=== PATIENT | female | born 1995 | race Caucasian/White ===

== ENCOUNTER → 2021-11-12 11:53 | Outpatient (BNVA) | payer BC, SELFPAY | PROVIDERS: PCP Family Medicine; Visit Provider Clinical Nurse Specialist Adult Health | DX: J02.9 Acute pharyngitis, unspecified (principal) | CPT/HCPCS: 86308 ==

== ENCOUNTER → 2022-02-08 10:14 | Outpatient (BNVA) | payer BC, SELFPAY | PROVIDERS: PCP Family Medicine; Visit Provider Family Medicine | DX: R55 Syncope and collapse (principal); R42 Dizziness and giddiness | CPT/HCPCS: 80053; 82607; 84443; 84597; 85025 ==

== ENCOUNTER → 2022-03-26 09:29 | Outpatient (BNVA) | payer BC, SELFPAY | PROVIDERS: PCP Family Medicine; Visit Provider Clinical Nurse Specialist Adult Health | DX: N30.00 Acute cystitis without hematuria (principal) | CPT/HCPCS: 81000; 87086 ==

== ENCOUNTER → 2022-04-09 08:50 | Outpatient (BNVA) | payer BC, SELFPAY | PROVIDERS: PCP Family Medicine; Visit Provider Clinical Nurse Specialist Adult Health | DX: N39.0 Urinary tract infection, site not specified (principal); J20.9 Acute bronchitis, unspecified; N12 Tubulo-interstitial nephritis, not specified as acute or chronic | CPT/HCPCS: 81000; 87077; 87086; 87184 ==

== ENCOUNTER 2022-05-01 11:41 | Emergency (ER) | payer BC, SELFPAY ==
[2022-05-01 12:02] VITALS: BP 136/79; PULSE 63; RESP 13; TEMP 36.6; O2SAT 99; BMI 37.6
--- NOTE | 2022-05-01 12:38 | ED_ITS ---
HPI - Abdominal Pain General: Chief Complaint: Abdominal Pain Stated Complaint: abd pain Time Seen by Provider: 05/01/22 12:35 Source: patient Mode of arrival: ambulatory History of Present Illness: 27-year-old female reports onset of left-sided abdominal pain this morning feeling progressively worse radiating to her back she denies any dysuria urgency frequency or hematuria. She is no cough or shortness of breath. She is not had any diarrhea she any dysuria urgency or frequency. No fever sweats or chills. MD elicited complaint: abdominal pain Onset (ago): hour(s) Pain Consistency: constant Location: LLQ Severity: moderate Quality: cramping Radiation: none Relieving factors: nothing Associated Symptoms: Reports GI cramping and nausea; Denies bloating, chills, coffee ground emesis, constipation, diarrhea, dysuria, fever(s), hematochezia, hematemesis, melena and vomiting Review of Systems Const: Denies: fever(s), chills, body aches, change in appetite, fatigue or malaise ENMT: Denies: throat pain, ear or mastoid pain, nasal discharge or nasal congestion Card: Denies: chest pain, palpitations, edema, dyspnea on exertion or ort hopnea Resp: Denies: dyspnea, productive cough or non-productive cough GI: Reports: abdominal pain, nausea and GI cramping; Denies: vomiting, hematemesis, coffee ground emesis, diarrhea, constipation, bloating, hematochezia or melena : Denies: flank pain, difficulty voiding, dysuria, urinary frequency or u rinary urgency Skin/Breast: Denies: rash or pruritus PFSH ED PFSH: Surgical History History of weight loss surgery Hx of cholecystectomy Family History Grandmother Diabetes Mother Lung disease Grandfather Stroke Denies family history of Chronic kidney disease (CKD) Suicide Cancer Hypertension Social History Smoking and tobacco status: never smoked Alcohol intake: never Adopted: No Lives independently: Yes Housing: House Marital status: Single Number of children: 0 Highest education level completed: High School Graduate service: No Current occupational status: employed and student Pets and animals: Yes History of recent travel: No Current gender identity: Female Physical Exam Const: GENERAL APPEARANCE: cooperative and comfortable ORIENTATION/CONSCIOUSNESS: Yes awake, Yes oriented to person, Yes oriented to place and Yes oriented to time HENMT: COMMON NORMALS: normocephalic, atraumatic and hearing grossly normal bilaterally HEAD & SCALP: normocephalic and atraumatic Resp: COMMON NORMALS: normal respiratory effort, No retractions, No use of accessory muscles and clear to auscultation bilaterally AUSCULTATION: clear to auscultation bilaterally Cardio: COMMON NORMALS: regular rate, regular rhythm and No murmurs present (Cardio) RATE: regular rate RHYTHM: regular rhythm GI: COMMON NORMALS: Soft to palpation and No hepatosplenomegaly present AUSCULTATION: Yes normoactive bowel sounds PALPATION: Yes Soft to palpation, Yes Tenderness to palpation present (GI) (epigastric/LUQ pain), No Guarding due to palpation present (GI) and Yes No hepatosplenomegaly present : COMMON NORMALS: Yes no CVA tenderness BLADDER/KIDNEY EXAM: Yes no CVA tenderness Back/Pelvis: COMMON NORMALS: no CVA tenderness Extremity: COMMON NORMALS: normal to inspection, capillary refill normal, no clubbing, cyanosis or edema, no calf tenderness and no pedal edema Neuro: SENSORIUM/ORIENTATION: Yes oriented to person, Yes oriented to place and Yes oriented to time Skin: COMMON NORMALS: no rashes or lesions noted GENERAL SKIN EXAM: no rashes or lesions noted Course Vital Signs: Vital signs: Vital Signs Temperature 97.9 F 05/01/22 12:02 Pulse Rate 77 05/01/22 13:06 Respiratory Rate 13 05/01/22 12:02 Blood Pressure 133/76 05/01/22 13:58 Pulse Oximetry 99 05/01/22 13:58 Oxygen Delivery Me thod 05/01/22 13:58 MDM - Abdominal Pain Medical Decision Making Patient presented with abdominal discomfort. She has a incidental finding of a bladder infection and some elevated liver enzymes she had slight elevation previously its more so now she previously had a gastric bypass and she has had a cholecystectomy she does not have anything that resembles biliary colic her T bili is not elevated. Recommend that she follow-up with liver function with [facility] primary care doctor sometime in the next few weeks. There is a moderate amount of constipation on the CT which I think is what is probably causing her primary abdominal symptoms of brought her in today is pretty much completely resolved now we will go and discharge her home she can use lactulose milk of magnesia or magnesium citrate for relief of constipation MicroBid for 7 days for the UTI. Medical Records I reviewed the patient's medical records. Lab Data I reviewed the patient's lab results. 05/01/22 13:02 05/01/22 13:02 Labs/Radiology: Radiology Impressions Abdomen/Pelvis CT 05/01/22 14:04 IMPRESSION: 1. Normal appendix. 2. Mild diffuse constipation. 3. No renal obstruction or hydronephrosis. 4. Prior cholecystectomy and gastric bypass. Laboratory Results WBC 5.7 10^3/uL (4.0-10.0) 05/01/22 13:02 RBC 4.14 10^6/uL (4.1-5.3) 05/01/22 13:02 Hgb 12.9 g/dL (11.5-15.3) 05/01/22 13:02 Hct 38.9 % (37.0-47.0) 05/01/22 13:02 MCV 94.0 fl (81-99) 05/01/22 13:02 MCH 31.2 pg (28.0-34.0) 05/01/22 13:02 MCHC 33.2 g/dL (30.0-36.0) 05/01/22 13:02 RDW 11.9 % (12.1-15.1) L 05/01/22 13:02 Plt Count 187 10^3/cmm (130-400) 05/01/22 13:02 MPV 11.0 fL (7.4-10.4) H 05/01/22 13:02 Neut % (Auto) 67.2 % 05/01/22 13:02 Lymph % (Auto) 24.6 % 05/01/22 13:02 Kleberg % (Auto) 7.2 % 05/01/22 13:02 Eos % (Auto) 0.5 % 05/01/22 13:02 Baso % (Auto) 0.2 % 05/01/22 13:02 Neut # (Auto) 3.85 10^3/uL (1.8-7.7) 05/01/22 13:02 Lymph # (Auto) 1.4 10^3/uL (0.8-4.8) 05/01/22 13:02 Kleberg # (Auto) 0.4 10^3/uL (0.2-0.9) 05/01/22 13:02 Eos # (Auto) 0.0 10^3/uL (0.0-0.8) 05/01/22 13:02 Baso # (Auto) 0.0 10^3/uL (0.0-0.1) 05/01/22 13:02 Nucleated RBC % (auto) 0 % 05/01/22 13:02 Nucleated RBCs # 0.0 /100WBC 05/01/22 13:02 Sodium 139 mmol/L (136-145) 05/01/22 13:02 Potassium 3.4 mmol/L (3.5-5.1) L 05/01/22 13:02 Chloride 102 mmol/L (98-107) 05/01/22 13:02 Carbon Dioxide 26 mmol/L (22-29) 05/01/22 13:02 Anion Gap 14.4 (5-19) 05/01/22 13:02 BUN 8 mg/dL (6-20) 05/01/22 13:02 Creatinine 0.6 mg/dL (0.5-0.9) 05/01/22 13:02 GFR Calculation 121.8 mL/min (90-130) 05/01/22 13:02 Glucose 106 mg/dL (65-115) 05/01/22 13:02 Calculated Osmolality 287 mOsm/kg (285-295) 05/01/22 13:02 Calcium 9.0 mg/dL (8.5-10.5) 05/01/22 13:02 Total Bilirubin 0.8 mg/dL (0.15-1.2) 05/01/22 13:02 AST 158 U/L (0-32) H 05/01/22 13:02 ALT 73 U/L (0-33) H 05/01/22 13:02 Alkaline Phosphatase 145 U/L (35-105) H 05/01/22 13:02 Total Protein 7.2 g/dL (6.6-8.7) 05/01/22 13:02 Albumin 4.2 g/dL (3.5-5.2) 05/01/22 13:02 Globulin 3.0 g/dL (1.3-4.6) 05/01/22 13:02 Lipase 18 U/L (13-60) 05/01/22 13:02 HCG, Qual Negative (Negative) 05/01/22 13:02 Urine Color Yellow (Yellow) 05/01/22 13:30 Urine Appearance Clear (CLEAR) 05/01/22 13:30 Urine pH 6 (5-7) 05/01/22 13:30 Ur Specific [place] 1.010 (1.005-1.030) 05/01/22 13:30 Urine Protein Neg (Negative) 05/01/22 13:30 Urine Glucose (UA) Norm (Normal) 05/01/22 13:30 Urine Ketones Negative (Negative) 05/01/22 13:30 Urine Blood 3+ (Negative) H 05/01/22 13:30 Urine Nitrate Negative (Negative) 05/01/22 13:30 Urine Bilirubin Neg (Negative) 05/01/22 13:30 Urine Urobilinogen 4 mg/dL (Negative) H 05/01/22 13:30 Ur Leukocyte Esterase Trace (Negative) H 05/01/22 13:30 Urine RBC 5-10 /hpf (0-2) H 05/01/22 13:30 Urine WBC 0-4 /hpf (0-5) H 05/01/22 13:30 Ur Squamous Epith Cells 0-4 /hpf (0-5) H 05/01/22 13:30 Amorphous Sediment Not Reportable 05/01/22 13:30 Urine Bacteria 3+ /hpf (NONE) H 05/01/22 13:30 Urine Trichomonas 3+ /hpf H 05/01/22 13:30 Discharge Plan Discharge Patient Disposition: Home Clinical Impression: Constipation, Cystitis Condition: Stable Prescriptions: New Macrobid 100 mg capsule 100 mg PO BID 7 Days Qty: 14 0RF Rx Instructions: must administer with a meal/food lactulose 10 gram/15 mL (15 mL) solution 30 g PO Q2H 3 Days Qty: 1620 0RF Rx Instructions: until desired laxative effect No Action biotin 1 mg capsule 1 mg PO DAILY calcium carbonate [Antacid (calcium carbonate)] 200 mg calcium (500 mg) tablet,chewable 200 mg PO BID Celebrate B-12 Quick-Melt 1,000-200 mcg tablet,disintegrating 1 tab PO DAILY omeprazole 20 mg capsule,delayed release(DR/EC) 20 mg PO DAILY Saccharomyces boulardii [Daily Probiotic (S. boulardii)] 250 mg capsule 5,000 mmu cells PO DAILY Daily Multiple Tablet 1 tab PO DAILY Vitamin D3 50 mcg (2,000 unit) Capsule 50 mcg PO DAILY Discharge Orders: Discharge ED (Routine); Ordered 05/01/22 Ordered By: Elan Varela Referrals: Gaurav Reyes DO [Primary Care Provider] - Discharge Diet: Usual diet Discharge Activity: Increase activity as tolerated Patient Instructions: Opioid Safety, Pain Management Activity Restrictions/Additional Instructions: Your seen today for abdominal pain. You had a mild UTI. The UTI is not likely the cause of your abdominal discomfort you are experiencing. Start the oral antibiotics prescribed for you today to treat that 1 pill twice a day for a week. Your liver enzymes were elevated but your bilirubin is normal. Since you have previously your gallbladder out this should just be followed up with your primary care doctor with repeat lab tests in the next [address] did show moderate amount of constipation which I suspect is where your discomfort is from you can use lactulose magnesium citrate or milk of magnesia to relieve the constipation. Coding Level of Care Code ED Diabetes Territory Manager for Mimi Fwd Exam Comprehensive
[2022-05-01 13:06] VITALS: PULSE 77; O2SAT 99
[2022-05-01 13:24] LABS: Basophils % 0.2 %; Eosinophils % 0.5 %; Hematocrit 38.9 % (37.0-47.0); Hemoglobin 12.9 g/dL (11.5-15.3); Lymphocytes # 1.4 10^3/uL (0.8-4.8); Lymphocytes % 24.6 %; Mean Corpuscular HGB Conc 33.2 g/dL (30.0-36.0); Mean Corpuscular Hemoglobin 31.2 pg (28.0-34.0); Monocytes # 0.4 10^3/uL (0.2-0.9); Monocytes % 7.2 %; Neutrophils # 3.85 10^3/uL (1.8-7.7); Neutrophils % 67.2 %; Nucleated Red Blood Cells % 0 %; Platelet Count 187 10^3/cmm (130-400); Red Blood Count 4.14 10^6/uL (4.1-5.3); Red Cell Distribution Width 11.9 % (12.1-15.1); White Blood Count 5.7 10^3/uL (4.0-10.0)
[2022-05-01] MEDS: promethazine 25 mg/mL SDV 1 mL IM (13:28)
[2022-05-01] MEDS: sodium chloride 0.9% 1,000 ML 999 ML IV (13:32)
[2022-05-01 13:37] LABS: HCG, Serum Qual Negative (Negative)
[2022-05-01 13:44] LABS: Alanine Aminotransferase 73 U/L (0-33); Albumin Level 4.2 g/dL (3.5-5.2); Alkaline Phosphatase 145 U/L (35-105); Anion Gap 14.4 (5-19); Aspartate Amino Transferase 158 U/L (0-32); Blood Urea Nitrogen 8 mg/dL (6-20); Carbon Dioxide 26 mmol/L (22-29); Chloride 102 mmol/L (98-107); Glomerular Filtration Rate 121.8 mL/min (90-130); Glucose 106 mg/dL (65-115); Lipase 18 U/L (13-60); Osmolality Calculated 287 mOsm/kg (285-295); Potassium 3.4 mmol/L (3.5-5.1); Sodium 139 mmol/L (136-145); Total Bilirubin 0.8 mg/dL (0.15-1.2); Total Protein 7.2 g/dL (6.6-8.7)
[2022-05-01 13:50] LABS: Add Urine Microscopic? YES; Bilirubin Urine Neg (Negative); Blood Urine 3+ (Negative); Glucose Urine UA Norm (Normal); Ketones Urine Negative (Negative); Leukocyte Esterase Urine Trace (Negative); Nitrate Urine Negative (Negative); Protein Urine Neg (Negative); Urine Appearance Clear (CLEAR); Urine Color Yellow (Yellow); Urobilinogen Urine 4 mg/dL (Negative); pH Urine 6 (5-7)
[2022-05-01 13:51] LABS: Add Urine Culture? Yes; Bacteria Urine 3+ /hpf; Squamous Epithelial Cell Urine 0-4 /hpf (0-5); Trichomonas Urine 3+ /hpf; WBC Urine 0-4 /hpf (0-5)
[2022-05-01 13:58] VITALS: BP 133/76; O2SAT 99
--- NOTE | 2022-05-01 14:04 | CT_ITS ---
WS: [id number] CT ABDOMEN AND PELVIS NONCONTRAST HISTORY: flank pain, LEFT TECHNIQUE: Imaging performed through the abdomen and pelvis. Coronal and sagittal reformats are submi tted. All CT scans at [facility] use at least one of these dose optimization techniques: auto mated exposure control; mA and/or kV adjustment per patient size (includes targeted exams where dose is matched to clinical indication); or iterative reconstruction. DLP: 1400.83 mGy.cm COMPARISON: None available. Lower thorax: Lung bases are clear. No cardiomegaly. Prior gastric bypass. Liver: Mild to coarse echotexture from hepatic steatosis. Gallbladder: Prior cholecystectomy. Pancreas: Normal size and attenuation. Normal pancreatic duct. No pancreatitis or mass. Spleen: Normal. Adrenal glands: Normal. No mass. Right kidney: Normal size kidney with no mass or hydronephrosis. Left kidney: Normal size kidney with no mass or hydronephrosis. Aorta: Normal abdominal aorta, no aneurysm or atherosclerosis. No free fluid, intraperitoneal air or significant lymphadenopathy. GI tract: Normal appendix. No GI tract obstruction or diverticulosis. Mild constipation. Abdominal wall: Negative. No hernia. Pelvis: No free fluid or adenopathy. Uterus is midline. Osseous structures: Unremarkable. CT/CT kidney stone [id number] IMPRESSION: 1. Normal appendix. 2. Mild diffuse constipation. 3. No renal obstruction or hydronephrosis. 4. Prior cholecystectomy and gastric bypass.
[2022-05-01 15:27] VITALS: BP 118/69; PULSE 86; O2SAT 100
== END 2022-05-01 15:30 | disposition home or self-care (01) ==
PROVIDERS: Emergency Provider Family Medicine; PCP Family Medicine
DX: K59.00 Constipation, unspecified (principal); N30.90 Cystitis, unspecified without hematuria
CPT/HCPCS: 36415; 74176; 80053; 81001; 83690; 84703; 85025; 87086; 96360; 96372; 99285; J2550; J7030

== ENCOUNTER → 2022-06-25 11:24 | Outpatient (BNVA) | payer BC, SELFPAY | PROVIDERS: PCP Family Medicine; Visit Provider Clinical Nurse Specialist Adult Health | DX: J02.9 Acute pharyngitis, unspecified (principal) | CPT/HCPCS: 87880 ==

== ENCOUNTER 2022-07-02 10:32 | Outpatient (CLI) | payer BC, SELFPAY ==
[2022-07-02 11:24] LABS: Basophils % 0.3 %; Eosinophils # 0.1 10^3/uL (0.0-0.8); Eosinophils % 0.9 %; Hematocrit 36.3 % (37.0-47.0); Hemoglobin 11.8 g/dL (11.5-15.3); Lymphocytes # 2.5 10^3/uL (0.8-4.8); Lymphocytes % 43.3 %; Mean Corpuscular HGB Conc 32.5 g/dL (30.0-36.0); Mean Corpuscular Hemoglobin 29.9 pg (28.0-34.0); Mean Corpuscular Volume 91.9 fl (81-99); Mean Platelet Volume 9.8 fL (7.4-10.4); Monocytes # 0.6 10^3/uL (0.2-0.9); Monocytes % 9.6 %; Neutrophils # 2.62 10^3/uL (1.8-7.7); Neutrophils % 45.7 %; Nucleated Red Blood Cells % 0 %; Platelet Count 184 10^3/cmm (130-400); Red Blood Count 3.95 10^6/uL (4.1-5.3); Red Cell Distribution Width 12.7 % (12.1-15.1); White Blood Count 5.7 10^3/uL (4.0-10.0)
[2022-07-02 11:30] LABS: Erythrocyte Sedimentation Rate 12 mm/hr (0-15)
[2022-07-02 11:39] LABS: Alanine Aminotransferase 64 U/L (0-33); Albumin Level 4.3 g/dL (3.5-5.2); Alkaline Phosphatase 125 U/L (35-105); Anion Gap 14.1 (5-19); Aspartate Amino Transferase 47 U/L (0-32); Blood Urea Nitrogen 9 mg/dL (6-20); C Reactive Protein 15.7 mg/L (0.0-4.9); Calcium 8.6 mg/dL (8.5-10.5); Carbon Dioxide 25 mmol/L (22-29); Chloride 102 mmol/L (98-107); Glomerular Filtration Rate 194.5 mL/min (90-130); Glucose 91 mg/dL (65-115); Osmolality Calculated 282 mOsm/kg (285-295); Potassium 4.1 mmol/L (3.5-5.1); Sodium 137 mmol/L (136-145); Total Bilirubin 0.4 mg/dL (0.15-1.2); Total Protein 7.3 g/dL (6.6-8.7)
[2022-07-02 11:43] LABS: Monoscreen Negative (Negative)
== END 2022-07-02 10:33 | disposition home or self-care (01) ==
PROVIDERS: PCP Family Medicine; Visit Provider Clinical Nurse Specialist Adult Health
DX: J02.9 Acute pharyngitis, unspecified (principal); Z79.899 Other long term (current) drug therapy
CPT/HCPCS: 36415; 80053; 85025; 85651; 86140; 86308; 87070

== ENCOUNTER → 2022-10-28 15:53 | Outpatient (BNVA) | payer BC, SELFPAY | PROVIDERS: PCP Family Medicine; Visit Provider Family Medicine | DX: R79.89 Other specified abnormal findings of blood chemistry (principal); Z80.3 Family history of malignant neoplasm of breast; Z90.49 Acquired absence of other specified parts of digestive tract; Z98.84 Bariatric surgery status | CPT/HCPCS: 80053; 82306; 82607; 83735; 84443; 85025; 88361; 88374 ==

== ENCOUNTER → 2023-02-25 09:34 | Outpatient (BNVA) | payer BC, SELFPAY | PROVIDERS: PCP Family Medicine; Visit Provider Family Medicine | DX: E03.9 Hypothyroidism, unspecified (principal); R60.9 Edema, unspecified; Z76.89 Persons encountering health services in other specified circumstances; Z80.3 Family history of malignant neoplasm of breast | CPT/HCPCS: 80053; 84443; 86480; 86762 ==

== ENCOUNTER → 2023-03-25 09:30 | Outpatient (BNVA) | payer BC, MEDICAID, SELFPAY | PROVIDERS: PCP Family Medicine; Referring Provider Family Medicine; Visit Provider Nurse Practitioner Women's Health | DX: Z12.4 Encounter for screening for malignant neoplasm of cervix (principal); Z01.419 Encounter for gynecological examination (general) (routine) without abnormal findings; Z80.3 Family history of malignant neoplasm of breast | CPT/HCPCS: 88175 ==

== ENCOUNTER 2023-05-03 19:13 | Emergency (ER) | payer BC, MEDICAID, SELFPAY ==
--- NOTE | 2023-05-03 19:16 | USR_ITS ---
PROCEDURE INFORMATION: Exam: US Duplex Right Lower Extremity Veins, Limited Exam date and time: 05/03/2023 9:18 PM Age: 28 years old Clinical indication: Pain; Leg, lower; Right; Additional info: Dvt RO TECHNIQUE: Imaging protocol: Real-time duplex ultrasound of the right extremity with 2-D turpin scale, color Doppler flow and spectral waveform analysis including responses to compression and other maneuvers (when performed) with image documentation. Limited exam was focused on the right lower extremity veins. COMPARISON: CT kidney stone [id number] 05/01/2022 2:33 PM FINDINGS: Right deep veins: Unremarkable. The common femoral, femoral, proximal profunda femoral and popliteal veins are patent without thrombus. Normal Doppler waveforms. Normal compressibility and/or augmentation response. Superficial veins: Unremarkable. Saphenofemoral junction is patent without thrombus. Soft tissues: Unremarkable. US/[place] [id number] IMPRESSION: No evidence of deep vein thrombosis.
[2023-05-03 19:20] VITALS: BP 163/97; PULSE 58; RESP 16; TEMP 36.3; O2SAT 100; BMI 36.2
--- NOTE | 2023-05-03 21:48 | W.ED.EXTPRO ---
HPI - Extremity Problem General: Chief complaint: Extremity Injury, Lower Stated complaint: [facility] inter thigh Time Seen by Provider: 05/03/23 21:14 Source: patient Mode of arrival: ambulatory Limitations: no limitations History of Present Illness: 28-year-old female states she has had right leg pain throughout the day. States tender right inner leg no rash she was seen in urgent care sent here to rule out a DVT states pain is 4 out of 10 currently denies any fevers. Denies any radiation of her pain Associated symptoms: Deny chest pain, fever(s) or rash Review of Systems Const: Denies: fever(s), chills, body aches or change in appetite ENMT: Denies: throat pain or dental pain Card: Denies: chest pain Resp: Denies: dyspnea GI: Denies: abdominal pain, nausea, vomiting or diarrhea Musc: Reports: extremity pain; Denies: neck pain or back pain Skin/Breast: Denies: rash Neuro: Denies: headache(s) PFSH ED PFSH: Medical History (Updated 05/03/23 @ 21:48 by Fabiana Perez MD) Family history of breast cancer sister dx at age 37 w/ ER/OH positive; BRCA 1&2 negative. Patient with neg BRCA;positive VUS which is essentially negative Hypothyroidism Surgical History History of tonsillectomy History of weight loss surgery modified duodenal switch 10/2021 Hx of cholecystectomy Family History (Updated 04/01/23 @ 09:29 by Dimas Zuñiga MD) Grandmother Diabetes Heart disease Mother Lung disease Asthma, worsening after COVID Diabetes Thyroid disease Liver failure Stage 4 Grandfather Stroke Sister Breast cancer, Onset Age: 38 stage 4 ER/OH positive BRCA 1&2 Negative Denies family history of Colon cancer Ovarian cancer Prostate cancer Hyperlipidemia Chronic kidney disease (CKD) Suicide Hypertension Uterine cancer Social History Smoking and tobacco/nicotine status: never used tobacco/nicotine Alcohol intake: never Substance/Drug Use: never 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 Marital status: Single Physical Exam Const: COMMON NORMALS: no acute distress, patient oriented x3 and healthy appearing HENMT: COMMON NORMALS: normocephalic and atraumatic HEAD & SCALP: normocephalic and atraumatic Neck/C-Spine: COMMON NORMALS: full ROM and supple Chest: COMMONS NORMALS: normal inspection of the chest Resp: COMMON NORMALS: normal respiratory effort Cardio: COMMON NORMALS: regular rate, regular rhythm and No murmurs present (Cardio) RATE: regular rate RHYTHM: regular rhythm Extremity: NARRATIVE EXTREMITY EXAM: Slight tenderness to right inner leg distal pulses sensation intact Neuro: COMMON NORMALS: patient oriented x3, moves all extremities and no focal motor deficits Psych: COMMON NORMALS: mental status grossly normal, Normal thought process present and cooperative THOUGHT PROCESS: Normal thought process present Skin: COMMON NORMALS: no rashes or lesions noted and no wounds GENERAL SKIN EXAM: no rashes or lesions noted Course Vital Signs: Vital signs: Vital Signs Temperature 97.3 F L 05/03/23 19:20 Pulse Rate 58 L 05/03/23 19:20 Respiratory Rate 16 05/03/23 19:20 Blood Pressure 163/97 05/03/23 19:20 Pulse Oximetry 100 05/03/23 19:20 Oxygen Delivery Me thod Room Air 05/03/23 19:20 MDM - Extremity (Nontraumatic) Medical Decision Making Patient presents here with right leg pain likely muscular in origin ultrasound here shows no DVT she is stable for discharge she is to follow-up with PCP and return if worsening. Medical Records I reviewed the patient's medical records. All radiology interpretation(s) finalized by discharge Discharge Plan Discharge Patient Disposition: Home Clinical Impression: Leg pain, right Condition: Stable Prescriptions: New naproxen [Naprosyn] 500 mg tablet 500 mg PO BID PRN (Reason: pain) Qty: 20 0RF No Action metronidazole 500 mg tablet 500 mg PO BID 7 Days Qty: 14 0RF epinephrine [EpiPen 2-Adriel] 0.3 mg/0.3 mL auto-injector 0.3 mg IM Q10M PRN (Reason: anaphylaxis) Qty: 2 0RF Rx Instructions: for 2 doses biotin 1 mg capsule 1 mg PO DAILY calcium carbonate [Antacid (calcium carbonate)] 200 mg calcium (500 mg) tablet,chewable 200 mg PO BID Celebrate B-12 Quick-Melt 1,000-200 mcg tablet,disintegrating 1 tab PO DAILY Saccharomyces boulardii [Daily Probiotic (S. boulardii)] 250 mg capsule 5,000 mmu cells PO DAILY Daily Multiple Tablet 1 tab PO DAILY Vitamin D3 50 mcg (2,000 unit) Capsule 50 mcg PO DAILY Discharge Orders: Discharge ED (Routine); Ordered 05/03/23 Ordered By: Fabiana Perez Referrals: Dimas Zuñiga MD [Primary Care Provider] - 4-7 days Discharge Diet: Advance as tolerated Discharge Activity: Resume usual activity Patient Instructions: Leg Pain (ED) Coding Level of Care Code ED Steep Tender for Mimi Rose
[2023-05-03] MEDS: naproxen 500 mg Tablet PO (21:52)
[2023-05-03 21:59] VITALS: PULSE 88; RESP 16
== END 2023-05-03 22:00 | disposition home or self-care (01) ==
PROVIDERS: Emergency Provider Emergency Medicine; PCP Family Medicine
DX: M79.604 Pain in right leg (principal)
CPT/HCPCS: 93971; 99284

== ENCOUNTER → 2023-07-11 08:49 | Outpatient (BNVA) | payer BC, MEDICAID, SELFPAY | PROVIDERS: PCP Family Medicine; Visit Provider Family Medicine | DX: Z51.81 Encounter for therapeutic drug level monitoring (principal); R55 Syncope and collapse; R53.81 Other malaise; R53.83 Other fatigue; R01.1 Cardiac murmur, unspecified | CPT/HCPCS: 80053; 83735; 84443; 85025 ==

== ENCOUNTER 2023-07-16 07:39 | Outpatient (CLI) | payer BC, MEDICAID, SELFPAY ==
--- NOTE | 2023-07-16 08:15 | USCV_ITS ---
ToanJose nye Age: 28 Gender: F : 1995 Exam Date: 07/16/2023 08:11 Ordering Phys: Dimas Zuñiga MD Technologist: Camryn Nicolas [place]am [place] [facility] [place]: SYNCOPE BP: / HR: 57 Rhythm: Sinus Technical Quality: Adequate MEASUREMENTS (Male / Female) Normal Values 2D ECHO LV Diastolic Diameter PLAX 3.9 cm 4.2 - 5.9 / 3.9 - 5.3 cm LV Systolic Diameter PLAX 2.7 cm LV Chamber Size 3.7 cm IVS Diastolic Thickness 0.7 cm 0.6 - 1.0 / 0.6 - 0.9 cm IVS Systolic Thickness 0.9 cm LVPW Diastolic Thickness 1.5 cm 0.6 - 1.0 / 0.6 - 0.9 cm LVPW Systolic Thickness 1.2 cm RV Chamber Size 3.2 cm LVOT Diameter 2.1 cm LV Ejection Fraction 2D Teich 60.3 % LV Ejection Fraction MOD 2C 29.8 % LV Ejection Fraction 2C AL 25.4 % LA Diameter 3.8 cm LA Width 3.4 cm LA Height 4.9 cm RA Width 3.2 cm RA Height 4.8 cm Aorta at Sinotubular Diameter 2.9 cm IVC Diameter 1.7 cm M-MODE Aortic Annulus Diameter 2.8 cm LA Ao Ratio MM 1.8 MV E Point Septal Separation 0.6 cm DOPPLER AV Peak Velocity 177.7 cm/s LVOT Peak Velocity 95.3 cm/s AV Area Cont Eq vti 1.9 cm squared AV Area Cont Eq pk 1.8 cm squared MV Area PHT 3.7 cm squared Mitral E to A Ratio 2.8 MV E' Velocity 78.0 cm/s Mitral E to MV E' Ratio 10.8 Mitral E to LV E' Lateral Ratio 10.5 Mitral E to LV E' Septal Ratio 11.1 TR Peak Velocity 207.7 cm/s TR Peak Gradient 17.3 mmHg TR Mean Velocity 136.6 cm/s TR Mean Gradient 8.8 mmHg TR Velocity Time Integral 49.9 cm TV Peak E Velocity 84.0 cm/s Right Atrial Pressure 3.0 mmHg Pulmonary Artery Systolic Pressu 20.3 mmHg RV Acceleration Time 0.1 s RV Ejection Time 0.3 s RV AcT/ET 0.4 FINDINGS Left Ventricle Left ventricle is normal in size. LV systolic function is normal with EF of 55 to 60%. No regional wall motion abnormalities are seen. Right Ventricle Normal in size and function Right Atrium Normal in size Left Atrium Normal in size Mitral Valve Structurally normal mitral valve. Aortic Valve Structurally normal aortic valve. No significant stenosis or regurgitation. Tricuspid Valve Mild tricuspid regurgitation. Pulmonary artery systolic pressure is normal. Pulmonic Valve Not well visualized Pericardium Normal Aorta Normal in size IVC Appears to be normal CONCLUSIONS LV systolic function is normal with EF of 55 to 60%. Mild tricuspid regurgitation No comparison studies are available. Terry Agee MD (Electronically Signed) Final Date: 30 July 2023 11:24 S
== END 2023-07-16 07:40 | disposition home or self-care (01) ==
LOC: RAD 07:40
PROVIDERS: PCP Family Medicine; Visit Provider Family Medicine
DX: R55 Syncope and collapse (principal); R01.1 Cardiac murmur, unspecified
CPT/HCPCS: 93306

== ENCOUNTER → 2023-12-24 09:21 | Outpatient (BNVA) | payer BC, MEDICAID, SELFPAY | PROVIDERS: PCP Family Medicine; Visit Provider Family Medicine | DX: Z34.90 Encounter for supervision of normal pregnancy, unspecified, unspecified trimester (principal) | CPT/HCPCS: 80307; 81003; 81025; 84144; 84439; 84443; 84481; 84702; 85025; 86592; 86762; 86803; 86850; 86900; 87077; 87086; 87184; 87340; 87491; 87591; 87624; 87806 ==

== ENCOUNTER 2024-01-07 10:30 | Outpatient (CLI) | payer BC, MEDICAID, SELFPAY ==
--- NOTE | 2024-01-07 10:30 | USR_ITS ---
PROCEDURE INFORMATION: Exam: US First Trimester, Transabdominal and US , Transvaginal Exam date and time: 01/07/2024 10:11 AM Age: 28 years old Clinical indication: Screening exam; Routine US, uterus; Additional info: Dating US - about 2 weeks from now LABS AND CLINICAL REPORTS: Last menstrual period start date: 11/17/2023 Gestational age (Established): 7 w 2 d Estimated due date (Established): 08/23/2024 TECHNIQUE: Imaging protocol: Real-time transabdominal obstetrical ultrasound of the maternal pelvis and a first trimester , less than 14 weeks 0 days, with image documentation. Transvaginal imaging was used for better evaluation of the fetus, adnexa, and/or cervix. COMPARISON: CT kidney stone [id number] 05/01/2022 2:33 PM FINDINGS: GESTATION: Gestation: Yolk sac measures 4.5 mm. Embryonic/ heart rate: 152 bpm Extra-embryonic membranes/Placenta: Unremarkable. No subchorionic bleed. Amniotic/Chorionic fluid: Amniotic and extra-amniotic fluid are normal for gestational age. BIOMETRY: Gestational age (AUA): 7 weeks 3 days ALICE 08/22/2024 Mean sac diameter: 2.47 cm. EGA (MSD) is 7 w 4 d MATERNAL: Uterus: Unremarkable. 5.1 cm x 5.7 cm x 9.9 cm Cervix: Unremarkable. Endocervical canal is closed. Right ovary/adnexa: 3.3 cm x 1.9 cm x 2 cm no focal abnormality.. Left ovary/adnexa: Obscured by lack of adequate acoustic window. Intraperitoneal space: No intraperitoneal free fluid. US/US OB <=14 wk fetus w transvag IMPRESSION: 1. Single living intrauterine gestation. 2. Gestational age 7 weeks 3 days ALICE 08/22/2024 . 3. Normal right ovary 4. Left ovary is not visible. 5. Unremarkable uterus
== END 2024-01-07 10:31 | disposition home or self-care (01) ==
PROVIDERS: PCP Family Medicine; Visit Provider Family Medicine
DX: Z34.01 Encounter for supervision of normal first pregnancy, first trimester (principal); R30.0 Dysuria
CPT/HCPCS: 76801; 76817; 87086

== ENCOUNTER 2024-02-16 06:00 | Outpatient (CLI) | payer BC, MEDICAID, SELFPAY | END 2024-02-16 06:01 | disposition home or self-care (01) | LOC: RAD 03-12 13:16 | PROVIDERS: PCP Family Medicine; Visit Provider Family Medicine | DX: E03.9 Hypothyroidism, unspecified (principal) | CPT/HCPCS: 84439; 84443 ==

== ENCOUNTER → 2024-03-08 14:27 | Outpatient (BNVA) | payer BC, MEDICAID, SELFPAY | PROVIDERS: PCP Family Medicine; Visit Provider Family Medicine | DX: R30.0 Dysuria (principal) | CPT/HCPCS: 81000; 87086 ==

== ENCOUNTER → 2024-03-15 10:38 | Outpatient (BNVA) | payer BC, MEDICAID, SELFPAY | PROVIDERS: PCP Family Medicine; Visit Provider Family Medicine | DX: Z34.00 Encounter for supervision of normal first pregnancy, unspecified trimester (principal) | CPT/HCPCS: 81511 ==

== ENCOUNTER 2024-04-05 10:35 | Outpatient (CLI) | payer BC, MEDICAID, SELFPAY ==
--- NOTE | 2024-04-05 11:15 | USR_ITS ---
PROCEDURE INFORMATION: Exam: US After First Trimester, Transabdominal Exam date and time: 04/05/2024 10:45 AM Age: 29 years old Clinical indication: Screening exam; Routine US, uterus; Additional info: Anatomy US - about 7 weeks from now TECHNIQUE: Imaging protocol: Real-time transabdominal obstetrical ultrasound of the maternal pelvis and a second or third trimester with image documentation. COMPARISON: US OB <=14 wk fetus w transvag 01/07/2024 10:11 AM FINDINGS: Gestation: Single, viable intrauterine gestation. heart rate: 135 bpm presentation and position: The fetus is in cephalic presentation. Placenta: The placenta is anterior. No placenta previa. No placental abruption. Amniotic fluid (Qualitative): Amniotic fluid is subjectively normal for gestational age. Amniotic fluid index: Not listed. ANATOMY: midline falx: Unremarkable. cerebellum: Unremarkable. lateral ventricles: Unremarkable. cisterna magna: Unremarkable. choroid plexus: Unremarkable. face: nose/upper lip and profile are unremarkable. aortic arch: The aortic arch is unremarkable. heart four-chamber view, heart size and position: There is a four-chamber heart. heart right ventricular outflow tract: Unremarkable. heart left ventricular outflow tract: Unremarkable. diaphragm: The diaphragm is intact. kidneys: Unremarkable. stomach: Unremarkable. urinary bladder: Unremarkable. spine: The spine is unremarkable. Umbilical cord and insertion: There is a three-vessel cord. Cord insertion into the abdominal wall is unremarkable. upper limbs: Unremarkable as visualized. lower limbs: Unremarkable as visualized. external genitalia: External female genitalia. No gross abnormality. BIOMETRY: Gestational age (AUA): 20 weeks 3 days. Estimated due date (AUA): 08/20/2024 Estimated weight: 343.64 g. EFW by AC, BPD, FL, HC, Hadlock 1985 Biparietal diameter (BPD): 4.96 cm. EGA (BPD) is 21 w 0 d. 86.3 % percentile Head circumference (HC): 17.97 cm. EGA (HC) is 20 w 3 d. 61.4 % percentile Abdominal circumference (AC): 15.19 cm. EGA (AC) is 20 w 3 d. 58.3 % percentile Femur length (FL): 3.22 cm. EGA (FL) is 20 w 0 d. 43.4 % percentile HC/AC: 1.18. (Normal range: 1.07 - 1.25) FL/HC: 17.92. (Normal range: 16.41 - 20.01) FL/BPD: 64.92 FL/AC: 21.2 MATERNAL: Uterus: Unremarkable. Cervix: The maternal cervix measures 4.4 cm using a transabdominal approach. There is a questionable small amount of cervical funneling at the internal cervical os (series 1, images 120 and 940). Right ovary/adnexa: Obscured by lack of adequate acoustic window. Left ovary/adnexa: Obscured by lack of adequate acoustic window. Intraperitoneal space: No ascites. US/US OB >= 14 weeks fetus [id number] IMPRESSION: 1. Single, viable intrauterine gestation. Estimated gestational age of twenty weeks 3 days by ultrasound. Estimated delivery date by ultrasound is 08/20/2024. This is consistent with the previous ultrasound. There has been interval growth of the fetus. 2. The maternal cervix measures 4.4 cm using a transabdominal approach. There is a questionable small amount of cervical funneling at the internal cervical os. Recommend follow-up imaging with transvaginal evaluation of the cervix including Valsalva maneuvers. 3. anatomic survey is unremarkable.
== END 2024-04-05 10:36 | disposition home or self-care (01) ==
LOC: RAD 10:36
PROVIDERS: PCP Family Medicine; Visit Provider Family Medicine
DX: Z34.00 Encounter for supervision of normal first pregnancy, unspecified trimester (principal)
CPT/HCPCS: 76805

== ENCOUNTER 2024-04-19 06:20 | Outpatient (CLI) | payer BC, MEDICAID, SELFPAY ==
--- NOTE | 2024-04-19 06:30 | USR_ITS ---
PROCEDURE INFORMATION: Exam: US , Limited Exam date and time: 04/19/2024 6:37 AM Age: 29 years old Clinical indication: Screening exam; Routine US, uterus; Additional info: Fol. Up on funneling seen on US - transvag imaging of cervix, in the next 7-10 days please LABS AND CLINICAL REPORTS: Gestational age (Established): 22 w 0 d Estimated due date (Established): 08/23/2024 TECHNIQUE: Imaging protocol: Real-time ultrasound of the maternal uterus with image documentation. Exam focused on the clinical indication. COMPARISON: US OB >= 14 weeks fetus [id number] 04/05/2024 10:45 AM FINDINGS: Gestation: Single live intrauterine gestation with estimated gestational age of 22 weeks and 0 days. Estimated due date of 08/23/2024. heart rate: 144 bpm Placenta: Anterior positioning of the placenta. Fetus in cephalic positioning. MATERNAL: Cervix: The cervix is long and closed, measuring 5.4 cm in length. There is mild bulging of the membranes at the internal os, with Y-shaped appearance, with funnel length of approximately 4 mm. US/US OB lmt with transvaginal IMPRESSION: 1. Single live intrauterine gestation with estimated gestational age of 22 weeks. No acute abnormality on this scan. 2. The cervix is long and closed. There is minimal funneling at the internal cervical os, of doubtful clinical significance. Continued monitoring recommended.
== END 2024-04-19 06:21 | disposition home or self-care (01) ==
LOC: RAD 06:21
PROVIDERS: PCP Family Medicine; Visit Provider Family Medicine
DX: Z34.02 Encounter for supervision of normal first pregnancy, second trimester (principal)
CPT/HCPCS: 76815; 76817

== ENCOUNTER → 2024-05-21 09:38 | Outpatient (BNVA) | payer BC, MEDICAID, SELFPAY | PROVIDERS: PCP Family Medicine; Visit Provider Family Medicine | DX: Z51.81 Encounter for therapeutic drug level monitoring (principal) | CPT/HCPCS: 85025 ==

== ENCOUNTER → 2024-05-27 13:49 | Outpatient (BNVA) | payer BC, MEDICAID, SELFPAY | PROVIDERS: PCP Family Medicine; Visit Provider Family Medicine | DX: Z34.00 Encounter for supervision of normal first pregnancy, unspecified trimester (principal) | CPT/HCPCS: 80053; 82306; 82310; 82525; 82607; 82728; 82746; 83550; 83735; 83970; 84100; 84425; 84439; 84443; 84446; 84590; 84597; 84630; 85610 ==

== ENCOUNTER 2024-06-23 12:15 | Outpatient (CLI) | payer BC, MEDICAID, SELFPAY ==
[2024-06-23 12:15] VITALS: BMI 36.5
[2024-06-23 12:23] VITALS: BP 143/77; PULSE 65
[2024-06-23 12:43] VITALS: BP 123/74; PULSE 68
== END 2024-06-23 13:00 | disposition home or self-care (01) ==
LOC: OPOB 12:15 → OBGYN 12:16
PROVIDERS: PCP Family Medicine; Visit Provider Family Medicine
DX: O36.8190 Decreased fetal movements, unspecified trimester, not applicable or unspecified (principal); Z3A.00 Weeks of gestation of pregnancy not specified
CPT/HCPCS: 59025; 99211

== ENCOUNTER 2024-07-16 09:30 | Outpatient (CLI) | payer BC, MEDICAID, SELFPAY ==
[2024-07-16 10:15] LABS: Basophils % 0.3 %; Eosinophils % 0.3 %; Hematocrit 28.6 % (36-47); Lymphocytes # 1.5 10^3/uL (0.8-4.8); Lymphocytes % 18.4 %; Mean Corpuscular HGB Conc 31.8 g/dL (30-55); Mean Corpuscular Hemoglobin 27.5 pg (27-33); Mean Corpuscular Volume 86.4 fl (85-98); Mean Platelet Volume 11.1 fL (7.4-10.4); Monocytes # 0.6 10^3/uL (0.2-0.9); Monocytes % 7.2 %; Neutrophils # 5.85 10^3/uL (1.8-7.7); Neutrophils % 73.4 %; Nucleated Red Blood Cells % 0 %; Platelet Count 186 10^3/cmm (157-399); Red Blood Count 3.31 10^6/uL (3.85-5.65); Red Cell Distribution Width 13.3 % (12.1-15.1); White Blood Count 7.95 10^3/uL (3.29-11.43)
[2024-07-16 10:34] LABS: UPRO/UCREAT Ratio 0.18 mg/mg CR; Urine Creatinine 40 mg/dL (28-217); Urine Protein Random 7 mg/dL
[2024-07-16 10:39] LABS: Calcium 8.3 mg/dL (8.5-10.5)
[2024-07-16 10:45] LABS: Parathyroid Hormone 29.3 pg/mL (15-65)
[2024-07-16 10:54] LABS: Folate Level 18.2 ng/mL (4.8-37.3)
[2024-07-16 11:00] LABS: 25 Hydroxy Vitamin D 20 ng/mL (30-100); Alanine Aminotransferase 19 U/L (0-33); Albumin Level 3.3 g/dL (3.5-5.2); Alkaline Phosphatase 135 U/L (35-105); Anion Gap 13.5 (5-19); Aspartate Amino Transferase 20 U/L (0-32); Blood Urea Nitrogen 6 mg/dL (6-20); Calcium 8.4 mg/dL (8.5-10.5); Carbon Dioxide 23 mmol/L (22-29); Chloride 106 mmol/L (98-107); Ferritin 8 ng/mL (15-150); Globulin 3.2 g/dL (1.3-4.6); Glomerular Filtration Rate 191.5 mL/min (90-130); Glucose 86 mg/dL (65-115); Iron 46 ug/dL (37-145); Osmolality Calculated 285 mOsm/kg (285-295); Percent Saturation 10.9 % (20-50); Potassium 3.5 mmol/L (3.5-5.1); Sodium 139 mmol/L (136-145); Thyroid Stimulating Hormone 1.31 uIU/mL (0.27-4.20); Total Bilirubin 0.4 mg/dL (0.15-1.2); Total Iron Binding Capacity 419 mcg/dl; Total Protein 6.5 g/dL (6.6-8.7); Unsaturated Iron Binding 373 ug/dL (112-347); Uric Acid 3.2 mg/dL (2.4-5.7); Vitamin B12 428 pg/mL (232-1245)
[2024-07-16 11:28] LABS: Free T4 Free Thyroxine 0.98 ng/dL (0.82-1.77)
== END 2024-07-16 09:31 | disposition home or self-care (01) ==
LOC: LAB 09:31
PROVIDERS: PCP Family Medicine; Visit Provider Family Medicine
DX: E55.9 Vitamin D deficiency, unspecified (principal); O99.843 Bariatric surgery status complicating pregnancy, third trimester; E03.9 Hypothyroidism, unspecified; R03.0 Elevated blood-pressure reading, without diagnosis of hypertension; Z51.81 Encounter for therapeutic drug level monitoring; D64.9 Anemia, unspecified; E53.8 Deficiency of other specified B group vitamins
CPT/HCPCS: 36415; 80053; 82306; 82310; 82525; 82570; 82607; 82728; 82746; 83540; 83550; 83970; 84156; 84425; 84439; 84443; 84446; 84550; 84590; 84597; 84630; 85025

== ENCOUNTER → 2024-07-21 11:43 | Outpatient (BNVA) | payer BC, MEDICAID, SELFPAY | PROVIDERS: PCP Family Medicine; Visit Provider Family Medicine | DX: R03.0 Elevated blood-pressure reading, without diagnosis of hypertension (principal); O99.843 Bariatric surgery status complicating pregnancy, third trimester | CPT/HCPCS: 84156 ==

== ENCOUNTER 2024-07-26 10:10 | Outpatient (CLI) | payer BC, MEDICAID, SELFPAY ==
[2024-07-26 10:20] VITALS: RESP 15
[2024-07-26 10:21] VITALS: BMI 36.8
[2024-07-26 10:22] VITALS: BP 142/99; PULSE 110
[2024-07-26 10:38] VITALS: BP 132/80; PULSE 87
== END 2024-07-26 10:55 | disposition home or self-care (01) ==
LOC: OPOB 10:13 → OBGYN 10:14
PROVIDERS: PCP Family Medicine; Visit Provider Family Medicine
DX: O16.9 Unspecified maternal hypertension, unspecified trimester (principal); Z3A.00 Weeks of gestation of pregnancy not specified
CPT/HCPCS: 59025

== ENCOUNTER 2024-07-30 10:50 | Outpatient (CLI) | payer BC, MEDICAID, SELFPAY ==
--- NOTE | 2024-07-30 11:00 | US_ITS ---
WS: [id number] BIOPHYSICAL PROFILE AND LIMITED OB. HISTORY: chronic HTN - See below COMPARISON: 01/07/2024, 04/05/2024, 04/19/2024 Presentation: Cephalic Cervix: Not visualized due to head position deep within the pelvis. Placenta: Anterior, no previa or abruption. Grade: 2 HEART: FHR of 142BPM. measurements: BPD = 9.0 cm = 36w4d; 62% HC = 32.7 cm = 37w1d; 34% AC = 32.6 cm = 36w4d; 62% FL = 7.1 cm = 36w3d; 43% ALICIA: 13.6 cm EFW: 2978.7g; 54% AGA by ultrasound: 36 weeks 5 days ALICE by ultrasound: 08/22/2024 Biophysical profile: Parameters are as follows: Breathin Movement: 2 Tone: 2 Fluid volume: 2 UMBILICAL ARTERY DOPPLER Waveform analysis: Normal systolic and diastolic velocities. Diastolic velocity remains above the baseline. Normal upstroke of waveform. SD ratios: 2.3, at the 50th percentile. Resistivity indices: 0.5, at the 50th percentile. US/US OB lmt w/ BPP wo NST IMPRESSION: 1. Biophysical profile score: 8/8. 2. Single intrauterine gestation of 36 weeks 5 days with an EDC of 08/22/2024. Appropriate growth since the first trimester ultrasound. 3. Normal SD ratio and normal resistivity indices. 4. Normal amniotic fluid. 5. Anterior placenta, grade 2.
== END 2024-07-30 10:51 | disposition home or self-care (01) ==
PROVIDERS: PCP Family Medicine; Visit Provider Family Medicine
DX: Z34.03 Encounter for supervision of normal first pregnancy, third trimester (principal); I10 Essential (primary) hypertension; Z3A.36 36 weeks gestation of pregnancy
CPT/HCPCS: 76815; 76819; 87081

== ENCOUNTER 2024-07-30 14:12 | Outpatient (CLI) | payer BC, MEDICAID, SELFPAY ==
[2024-07-30 14:10] VITALS: BMI 37.6
[2024-07-30 14:23] VITALS: BP 135/81; PULSE 77
[2024-07-30 14:38] VITALS: BP 133/79; PULSE 81
== END 2024-07-30 14:55 | disposition home or self-care (01) ==
LOC: OPOB 14:13 → OBGYN 14:14
PROVIDERS: Family Provider Family Medicine; PCP Family Medicine; Visit Provider Family Medicine
DX: O16.9 Unspecified maternal hypertension, unspecified trimester (principal); Z3A.00 Weeks of gestation of pregnancy not specified
CPT/HCPCS: 59025; 99211

== ENCOUNTER 2024-08-03 10:31 | Outpatient (CLI) | payer BC, MEDICAID, SELFPAY ==
[2024-08-03 10:31] VITALS: BMI 37.3
[2024-08-03 10:43] VITALS: BP 134/80; PULSE 68
[2024-08-03 11:07] VITALS: BP 125/74; PULSE 73
[2024-08-03 11:27] VITALS: BP 122/73; PULSE 76
== END 2024-08-03 11:33 | disposition home or self-care (01) ==
LOC: OPOB 10:35 → OBGYN 10:36
PROVIDERS: Family Provider Family Medicine; PCP Family Medicine; Visit Provider Family Medicine
DX: O16.9 Unspecified maternal hypertension, unspecified trimester (principal); Z3A.00 Weeks of gestation of pregnancy not specified
CPT/HCPCS: 59025; 99211

== ENCOUNTER 2024-08-03 14:00 | Outpatient (CLI) | payer BC, MEDICAID, SELFPAY ==
--- NOTE | 2024-08-03 14:15 | USR_ITS ---
PROCEDURE INFORMATION: Exam: US Biophysical Profile Without Non-Stress Test Exam date and time: 08/03/2024 2:33 PM Age: 29 years old Clinical indication: Condition or disease; Other: HTN; ; Additional info: Chronic HTN, alicia/bpp/efw/umblical artery doppler TECHNIQUE: Imaging protocol: US biophysical profile without non-stress testing. COMPARISON: US OB lmt w/ BPP wo NST 07/30/2024 11:08 AM FINDINGS: Gestation: Single live intrauterine in cephalic presentation. heart rate: 142 bpm Placenta: The placenta is anterior in location. Amniotic fluid index: ALICIA is 15.16 cm. BIOPHYSICAL PROFILE: breathing (BPP): 2 out of 2. gross body movement (BPP): 2 out of 2. tone (BPP): 2 out of 2. Amniotic fluid (BPP): 2 out of 2. MATERNAL ANATOMY: Cervix: Not well seen on this exam due to shadowing from the cranium. US/US OB lm w fetalBPP woNST &umb IMPRESSION: 1. Single live intrauterine in cephalic presentation. 2. biophysical profile score 8/8.
== END 2024-08-03 14:01 | disposition home or self-care (01) ==
PROVIDERS: Family Provider Family Medicine; PCP Family Medicine; Visit Provider Family Medicine
DX: O13.3 Gestational [pregnancy-induced] hypertension without significant proteinuria, third trimester (principal); Z3A.36 36 weeks gestation of pregnancy
CPT/HCPCS: 76815; 76819; 76820

== ENCOUNTER 2024-08-06 10:17 | Outpatient (CLI) | payer BC, MEDICAID, SELFPAY ==
[2024-08-06 10:12] VITALS: BMI 32.5
[2024-08-06 10:44] VITALS: BP 130/82; PULSE 89
== END 2024-08-06 10:55 | disposition home or self-care (01) ==
LOC: OPOB 10:17 → OBGYN 10:31
PROVIDERS: Family Provider Family Medicine; PCP Family Medicine; Visit Provider Family Medicine
DX: O16.9 Unspecified maternal hypertension, unspecified trimester (principal); Z3A.00 Weeks of gestation of pregnancy not specified
CPT/HCPCS: 59025; 99211

== ENCOUNTER 2024-08-10 11:07 | Outpatient (CLI) | payer BC, MEDICAID, SELFPAY ==
[2024-08-10 11:07] VITALS: BMI 38.2
[2024-08-10 11:32] VITALS: BP 124/78; PULSE 68
[2024-08-10 11:47] VITALS: BP 136/91; PULSE 74
== END 2024-08-10 11:54 | disposition home or self-care (01) ==
LOC: OPOB 11:09 → OBGYN 11:10
PROVIDERS: Family Provider Family Medicine; PCP Family Medicine; Visit Provider Family Medicine
DX: O16.9 Unspecified maternal hypertension, unspecified trimester (principal); Z3A.00 Weeks of gestation of pregnancy not specified
CPT/HCPCS: 59025; 99211

== ENCOUNTER 2024-08-10 12:26 | Outpatient (CLI) | payer BC, MEDICAID, SELFPAY ==
--- NOTE | 2024-08-10 12:34 | USR_ITS ---
PROCEDURE INFORMATION: Exam: US Biophysical Profile Without Non-Stress Test Exam date and time: 08/10/2024 12:40 PM Age: 29 years old Clinical indication: Condition or disease; Other: Chronic HTN; TECHNIQUE: Imaging protocol: US biophysical profile without non-stress testing. COMPARISON: US OB lm w fetalBPP woNST umb 08/03/2024 2:33 PM FINDINGS: Gestation: Single live intrauterine in cephalic presentation. heart rate: 157 bpm Placenta: Anterior in location. Amniotic fluid index: ALICIA is 13.83 cm. BIOPHYSICAL PROFILE: breathing (BPP): 2 out of 2. gross body movement (BPP): 2 out of 2. tone (BPP): 2 out of 2. Amniotic fluid (BPP): 2 out of 2. MATERNAL ANATOMY: Cervix: Cervical length measures 3.3 cm. US/US OB lm w fetalBPP woNST &umb IMPRESSION: 1. Single live intrauterine in cephalic presentation. 2. biophysical profile score 8/8.
== END 2024-08-10 12:27 | disposition home or self-care (01) ==
LOC: RAD 12:26
PROVIDERS: Family Provider Family Medicine; PCP Family Medicine; Visit Provider Family Medicine
DX: Z34.00 Encounter for supervision of normal first pregnancy, unspecified trimester (principal); I10 Essential (primary) hypertension
CPT/HCPCS: 76815; 76819; 76820

== ENCOUNTER → 2024-08-11 10:17 | Outpatient (BNVA) | payer BC, MEDICAID, SELFPAY | PROVIDERS: Family Provider Family Medicine; PCP Family Medicine; Visit Provider Family Medicine | DX: O99.843 Bariatric surgery status complicating pregnancy, third trimester (principal); R79.89 Other specified abnormal findings of blood chemistry; I10 Essential (primary) hypertension | CPT/HCPCS: 80053; 82306; 83540; 84590; 84597; 84630; 85014; 85018 ==

== ENCOUNTER 2024-08-13 10:16 | Outpatient (CLI) | payer BC, MEDICAID, SELFPAY ==
[2024-08-13 10:35] VITALS: BP 146/85; PULSE 63
[2024-08-13 10:50] VITALS: BP 163/77; PULSE 72
[2024-08-13 11:04] VITALS: BP 134/74; PULSE 71
[2024-08-13 11:13] VITALS: BMI 38.5
[2024-08-13 11:19] VITALS: BP 127/74; PULSE 75
[2024-08-13 11:27] VITALS: BP 127/74; PULSE 75; O2SAT 98
== END 2024-08-13 11:30 | disposition home or self-care (01) ==
LOC: OPOB 10:20 → OBGYN 10:23
PROVIDERS: Family Provider Family Medicine; PCP Family Medicine; Visit Provider Family Medicine
DX: O16.9 Unspecified maternal hypertension, unspecified trimester (principal); Z3A.00 Weeks of gestation of pregnancy not specified
CPT/HCPCS: 59025

== ENCOUNTER 2024-08-16 19:58 | Inpatient (IN) | payer BC, MEDICAID, SELFPAY ==
[2024-08-16] VITALS (10 sets, daily range): BP systolic 130–150; BP diastolic 78–93; PULSE 62–91; RESP 18; TEMP 36.1; BMI 38.5
--- NOTE | 2024-08-16 21:20 | PM.HP ---
Providers/Chief Complaint Admitting Physician: Dimas Zuñiga MD Primary Care Provider: Dimas Zuñiga MD Chief Complaint: IOL History of Present Illness Jose Joya is a 29 year old @ 39.0 wks by LMP c/w 7 wk US. Preg c/b h/o hypothyroidism, h/o gastric bypass, obesity, chronic HTN, h/o trichomonas, UTI in first TM, multiple micronutrient deficiencies including vitamin K, vitamin A, vitamin D, zinc, iron deficiencies, anemia, hypokalemia. The patient presented to labor and delivery for a scheduled induction of labor secondary to chronic hypertension that is currently diet-controlled. The patient has been having twice weekly NSTs and ultrasounds that have not shown any concerning findings. Her blood pressures have been in the 130s to 140s systolic. She denies any symptoms from this at this time. The patient has multiple micronutrient deficiencies related to her prior gastric bypass. The most notable is a deficiency and vitamin K. She is taking supplementation and her levels have increased, however she continues to be low. The patient feels well overall at this time and denies any chest pains, shortness of breath, nausea, vomiting, diarrhea, constipation, leakage of fluid, vaginal bleeding, headache, flashes of light, bruising. Medications/Allergies Home Medications ?Medication ?Instructions ?Recorded ?Confirmed ?Last Taken ?Type calcium carbonate (Antacid 200 mg PO BID 03/26/22 08/14/24 04/30/22 History (calcium carbonate)) cyanoco,mecobalamin 1,000 1 tab PO DAILY 03/26/22 08/14/24 04/30/22 History mcg-folic acid 200 mcg disintegrating tablet (Celebrate B-12 Quick-Melt) multivitamin 1 tab PO DAILY 05/01/22 08/14/24 07/29/24 12:00 History epinephrine 0.3 mg/0.3 mL 0.3 mg (0.3 mL) IM Q10M PRN 11/25/22 08/14/24 Unknown Rx injection, auto-injector (EpiPen anaphylaxis #2 ea 2-Adriel) doxylamine succinate 25 mg tablet See Rx Instructions .Route 12/24/23 08/14/24 Unknown Rx .COMPLEX PRN allergy symptoms #30 tabs vitamins no.154-ferrous 1 tab PO DAILY 07/08/14/24 08/06/24 08:00 History fumarate 27 mg-folic acid 1 mg tablet pyridoxine (vitamin B6) 100 mg 100 mg PO BID PRN Nausea #60 tabs 12/24/23 08/14/24 Unknown Rx tablet cyanocobalamin (vitamin B-12) 500 500 mcg PO DAILY #30 tabs 06/03/24 08/14/24 Unknown Rx mcg tablet (Vitamin B-12) vitamin E (dl, acetate) 180 mg 180 mg PO DAILY #30 caps 06/03/24 08/14/24 Unknown Rx (400 unit) capsule zinc gluconate 50 mg tablet 50 mg PO BID #60 tabs 07/20/24 08/14/24 Unknown Rx cholecalciferol (vitamin D3) 50 100 mcg (2 x 50 mcg (2,000 unit)) 07/23/24 08/14/24 Unknown Rx mcg (2,000 unit) capsule PO BID #60 caps ferrous sulfate 325 mg (65 mg 325 mg PO TID #90 tabs 07/23/24 08/14/24 Unknown Rx iron) tablet vitamin A palmitate 4,500 mcg 15,000 unit PO DAILY #30 tabs 07/23/24 08/14/24 Unknown Rx (15,000 unit) tablet phytonadione (vitamin K1) 100 mcg 100 mcg PO DAILY #30 tabs 07/27/24 08/14/24 Unknown Rx tablet labetalol 100 mg tablet 50 mg (1/2 x 100 mg) PO BID PRN 07/30/24 08/14/24 Unknown Rx hypertension #30 tabs potassium chloride 20 mEq 20 meq PO BID #30 tabs 08/11/24 08/14/24 Unknown Rx tablet,extended release(part/cryst) (Klor-Con M) Allergies Allergy/AdvReac Type Severity Reaction Status Date / Time No Known Allergies Allergy Verified 01/21/24 09:24 PFSH Acute PFSH: Medical History Hypothyroidism Family history of breast cancer sister dx at age 37 w/ ER/NV positive; BRCA 1&2 negative. Patient with neg BRCA;positive VUS which is essentially negative Surgical History Hx of sebaceous cyst Upper chest History of tonsillectomy Hx of cholecystectomy History of weight loss surgery modified duodenal switch 10/2021 Family History Grandmother Diabetes Heart disease Mother Lung disease Asthma, worsening after COVID Diabetes Thyroid disease Liver failure Stage 4 Grandfather Stroke Sister Breast cancer, Onset Age: 38 stage 4 ER/NV positive BRCA 1&2 Negative Denies family history of Colon cancer Ovarian cancer Prostate cancer Hyperlipidemia Chronic kidney disease (CKD) Suicide Hypertension Uterine cancer Social History Smoking and tobacco/nicotine status: never used tobacco/nicotine Alcohol intake: never Substance/Drug Use: never 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 Marital status: Single Vitals/I&O/Wt Last Vital Signs Temp 97.0 F L 08/16/24 19:55 Pulse 81 08/16/24 20:58 BP 150/78 08/16/24 21:19 Physical Exam Narrative: General: Alert and oriented x3 Eyes: Pupils equal round and reactive to light and accommodation Mouth: Mucous membranes moist, pharynx non-erythematous Cardiac: Regular rate and rhythm without murmurs Lungs: Clear to auscultation bilaterally without wheezes, crackles or rhonchi Abdomen: Soft, non-tender, fundus consistent with gestational age Extremities: +1 pitting edema in the bilateral lower extremities Data 08/16/24 20:15 08/16/24 21:00 A&P Assessment and plan (1) Supervision of high risk , unspecified, third trimester: The patient feels well at this time. We will proceed with induction of labor due to chronic hypertension. We discussed that her vitamin K levels have increased, however they have not increased to a normal range. We will need to watch for signs of bleeding intrapartum and for the patient as well as for bleeding complications with the after delivery. The patient's cervix is dilated to 1.5 cm but she is thick. She is navarro every 2 to 4 minutes but they are sporadic. They are not painful at this time. We will plan to give Cytotec and follow. The patient may receive IV pain medication for pain control prior to epidural. As long as anesthesia feels that it is safe for epidural, she may receive 1 when she reaches 3 cm or beyond if she would like. The patient's blood pressure is currently ranging in the 130s to 150 systolic range. We will treat with labetalol if needed. We will get preeclamptic labs. The patient and her are in agreement with current plan of care. (2) Chronic hypertension: (3) Vitamin K deficiency: PDMP PDMP Reviewed: Not Reviewed Attestations Medical Necessity Statement*: The patient will be here for greater than 2 midnights due to routine intrapartum and management of labor and delivery. Coding Level of Care Code Acute Code for Chg Fwd Diagnoses Supervision of high risk , unspecified, third trimester O09.93 Chronic hypertension I10 Vitamin K deficiency E56.1
[2024-08-16 21:34] LABS: Basophils % 0.1 %; Eosinophils % 0.1 %; Hematocrit 28.8 % (36-47); Lymphocytes % 20.8 %; Mean Corpuscular HGB Conc 31.3 g/dL (30-55); Mean Corpuscular Hemoglobin 26.2 pg (27-33); Mean Corpuscular Volume 83.7 fl (85-98); Mean Platelet Volume 11.5 fL (7.4-10.4); Monocytes # 0.8 10^3/uL (0.2-0.9); Monocytes % 8.5 %; Neutrophils # 6.56 10^3/uL (1.8-7.7); Neutrophils % 70.2 %; Nucleated Red Blood Cells % 0 %; Platelet Count 209 10^3/cmm (157-399); Red Blood Count 3.44 10^6/uL (3.85-5.65); Red Cell Distribution Width 14.9 % (12.1-15.1); White Blood Count 9.36 10^3/uL (3.29-11.43)
[2024-08-16] MEDS: sodium chloride 0.9% 500 ML 999 ML IV (21:59)
[2024-08-16 22:07] LABS: Alanine Aminotransferase 17 U/L (0-33); Albumin Level 3.1 g/dL (3.5-5.2); Alkaline Phosphatase 151 U/L (35-105); Anion Gap 16.6 (5-19); Aspartate Amino Transferase 21 U/L (0-32); Blood Urea Nitrogen 5 mg/dL (6-20); Calcium 7.8 mg/dL (8.5-10.5); Carbon Dioxide 17 mmol/L (22-29); Chloride 108 mmol/L (98-107); Globulin 2.8 g/dL (1.3-4.6); Glucose 77 mg/dL (65-115); Osmolality Calculated 282 mOsm/kg (285-295); Potassium 3.6 mmol/L (3.5-5.1); Sodium 138 mmol/L (136-145); Total Bilirubin 0.3 mg/dL (0.15-1.2); Total Protein 5.9 g/dL (6.6-8.7)
[2024-08-16 22:16] LABS: UPRO/UCREAT Ratio 0.14 mg/mg CR; Urine Creatinine 29 mg/dL (28-217); Urine Protein Random 4 mg/dL
[2024-08-17] VITALS (107 sets, daily range): BP systolic 93–225; BP diastolic 50–112; PULSE 42–146; RESP 15–18; TEMP 35.8–36.6; O2SAT 92–100
[2024-08-17] MEDS: oxytocin 30 UNIT/500 ML BAG IV (00:14)
[2024-08-17] MEDS: dextrose 5%-lactated ringers 1,000 ML 125 ML IV ×2 (00:14→07:55)
[2024-08-17 01:20] LABS: INR 0.94 (0.8-1.2)
[2024-08-17 01:21] LABS: Partial Thromboplastin Time 29.6 SECONDS (23.9-36.7)
[2024-08-17] MEDS: butorphanol 2 mg/mL SDV 1 mL 1 MG IVP ×2 (05:43→08:14)
[2024-08-17] MEDS: labetalol 5 mg/mL SDV 20mL 20 MG IVP (08:15)
--- NOTE | 2024-08-17 08:29 | P.PN_ITS ---
Subjective 2 Subjective: The patient is more comfortable today. Her contractions are increasing well. Her contractions are graphing every 6 minutes but she clinically is having them more frequently. heart tones are in the mid 120s with moderate variability and good accelerations. We ended up going straight to IV Pitocin instead of Cytotec because she was navarro frequently and her contractions were palpating firm. In order to avoid hyperstimulation we started her on IV Pitocin of 2 units every 30 minutes. The patient's blood pressures have started to increase along with her pain. She has received 1 dose of IV labetalol due to severe pressures. Vitals/I&O/Wt Last Vital Signs Temp 96.6 F L 08/17/24 07:56 Pulse 80 08/17/24 08:22 Resp 18 08/16/24 21:05 BP 136/89 08/17/24 08:22 O2 Del Method Room Air 08/16/24 21:10 08/16/24 08/17/24 08/17/24 22:59 06:59 14:59 Intake Total 45.517 / 45.517 960.417 / 960.417 Balance 45.517 / 45.517 960.417 / 960.417 Weight last 48 hrs Weight 276 lb Physical Exam 2 Narrative: General: Alert and oriented x3 Cardiac: Regular rate and rhythm without murmurs Lungs: Clear to auscultation bilaterally without wheezes, crackles or rhonchi : 4/80/-3/bulging bag of water Extremities: +1 edema in the bilateral lower extremities Data 08/16/24 20:15 08/16/24 21:00 A&P Assessment and plan (1) Supervision of high risk , unspecified, third trimester: The patient is currently doing well. She is having more pain and received a dose of Stadol. We will plan to get her set up for a laboring epidural since she is now 4 cm dilated. We will proceed with IV Pitocin for induction of labor. We will continue to watch for elevated blood pressures and treat if needed. I suspect that they will come down with her pain being under better control with an epidural. Her labs done yesterday did not show signs concerning for Hellp syndrome. We will hold off on magnesium for now and consider this if her blood pressures are more persistently elevated. The patient and her are in agreement with the current plan of care. PDMP PDMP Reviewed: Not Reviewed Attestations 2 Medical Necessity Statement*: The patient will be here for greater than 2 midnights due to routine intrapartum and management of labor and delivery with the above complications. Coding Level of Care Code Acute Code for Chg Fwd Diagnoses Supervision of high risk , unspecified, third trimester O09.93
[2024-08-17] MEDS: lactated ringers 1,000 ML 999 ML IV ×2 (08:40→09:38)
--- NOTE | 2024-08-17 09:22 | PC.NURSE ---
anesthesia called for epidural placement
--- NOTE | 2024-08-17 09:35 | ANES.PROC ---
Anesthesia Procedures Procedure/Date: 08/17/24 epidural Epidural: Time Out Performed: Yes Consents Signed: Procedure Consent (verbal and written) Lumbar Level: L1-L2 Epidural position: sitting Epidural procedure: sterile prep of area (938), 1% lidocaine to numb the area, neg for paresthesia, test dose given (955), no systemic response and sterile dressing applied Additional Comments: Bolus given Marcaine 0.25% (8ml) fractionated. Ropivicaine infusion started per protocol at 10ml/hr.
[2024-08-17] MEDS: ROPivacaine syringe 100 MG/50 ML SYRINGE 10 MG EPIDURAL (10:02)
[2024-08-17] MEDS: oxytocin 30 UNIT/500 ML BAG 600 UNIT IV (15:03)
--- NOTE | 2024-08-17 15:14 | P.PCNOB_ITS ---
Delivery Note: Date of delivery: August 17, 2024 Pre-delivery diagnoses: 1. Intrauterine at 39.1 weeks gestation 2. History of gastric bypass 3. Obesity 4. Chronic hypertension 5. History of trichomonas 6. UTI in first trimester 7. Multiple micronutrient deficiencies including vitamin K, vitamin A, vitamin D, zinc, iron 8. Anemia Post-delivery diagnoses: 1. Intrauterine status post s pontaneous vaginal delivery at 39.1 weeks gestation 2. History of gastric bypass 3. Obesity 4. Chronic hypertension 5. History of trichomonas 6. UTI in first trimester 7. Multiple micronutrient deficiencies including vitamin K, vitamin A, vitamin D, zinc, iron 8. Anemia 9. Delivery of healthy female we ighing 7 pounds 0 ounces with Apgars of 8 and 9 Procedure: Spontaneous vaginal delivery Delivering Physician: Dimas Zuñiga MD Estimated blood loss (mL): 150 Findings: 1. Intact placenta with central umbilic al cord insertion site 2. Healthy female weighi ng 7 pounds 0 ounces with Apgars of 8 and 9 Pre-Delivery Course: Jose Joya is a 29 year old G1 now P1 status post spontaneous vaginal delivery @ 39.1 wks by LMP c/w 7 wk US. Preg c/b h/o hypothyroidism, h/o gastric bypass, obesity, chronic HTN, h/o trichomonas, UTI in first TM, multiple micronutrient deficiencies including vitamin K, vitamin A, vitamin D, zinc, iron deficiencies, anemia, hypokalemia. The patient presented to labor and delivery for a scheduled induction of labor secondary to chronic hypertension that is currently diet-controlled. The patient has been having twice weekly NSTs and ultrasounds that have not shown any concerning findings. Her blood pressures have been in the 130s to 140s systolic. She denied any symptoms from this upon admission. The patient was 1.5 cm dilated upon admission on the evening of 08/16/2024 and 80% effaced. She was having contractions every 3 minutes and they were palpabl e, we decided to use IV Pitocin instead of Cytotec for induction of labor. The patient did not make significant change overnight, however by approximately 8:30 AM she had changed to 4 cm dilation. The patient continued to make change and had increased pain her blood pressures increased to the severe range and she was given 1 dose of labetalol. She received a laboring epidural which provided adequate anesthesia. SROM took place at 10:54 AM on 08/17/2024. A large amount of clear fluid was noted. The patient continued to make steady change. She was complete by 1357 on 08/17/2024. Delivery: The patient began pushing at 1401 on 08/17/2024. The patient pushed well and the delivered at 1431 on 08/17/2024. The patient delivered in the OA position. The left shoulder was anterior shoulder. Nuchal cord x 2 was noted and this was reduced prior to delivery of the infant's shoulder. Downward pressure was placed on the infant shoulder and it delivered with ease. The rest of the delivered with ease. The infant was vigorous upon delivery and was crying shortly after delivery. The 's mouth and nose were bulb sucti oned by myself. The infant was placed on mother's chest where the nurses were awaiting to care for her. The cord was clamped by myself after approximately 1 minute and cut by the 's father. Cord blood was obtained. The cord was then drained of blood and traction was placed on umbilical cord. The placenta delivered without complication at 1435 on 08/17/2024. The placenta was noted to be intact with a central umbilical cord insertion site. The cervix was inspected and no lacerations were noted. The vaginal wall was inspected and a second-degree left lower vaginal wall laceration was noted. The laceration was bleeding moderately. The patient's epidural provided adequate anesthesia. 3-0 Vicryl was used to repair the laceration in a running fashion. The patient tolerated this well. A rectal exam was done and no sutures were noted in the rectal vault. Currently both the mother and infant are doing well. History History History 1 Term 1 0 Miscarriages/Ectopic 0 Living Children 1 Past Pregnancies Del. Date GA/Weeks Outcome Route Wt Inf Gender Labor Lgth Comp. Anesth esia Location 08/17/24 39 live - full term Vaginal 7 lb Female 16 hrs [facility] Delivery Date: 08/17/24 Last Updated by: Dimas Zuñiga MD 2nd degree vaginal laceration, cHTN, micronutrient deficiencies, anemia A&P Assessment and plan (1) Spontaneous vaginal delivery: PDMP PDMP Reviewed: Not Reviewed Coding Level of Care Code Acute Code for Chg Fwd Diagnoses Spontaneous vaginal delivery O80
[2024-08-17] MEDS: ferrous sulfate EC 325 mg Tablet PO (18:16)
[2024-08-17] MEDS: zinc gluconate 50 mg Tablet PO (18:16)
[2024-08-17] MEDS: HYDROcodone-acetaminophen 5-325 mg Tablet PO (18:16)
[2024-08-17] MEDS: docusate sodium 100 mg Capsule PO (18:16)
[2024-08-17] MEDS: benzocaine-menthol 78 gm Canister 1 SPRAY TOPICAL (18:18)
[2024-08-17] MEDS: lanolin oint 7 gm 1 APPLIC TOPICAL (18:18)
--- NOTE | 2024-08-17 18:49 | PC.NURSE ---
moved to OB8 for routine post stay. oriented to room/call light and proud parent pack.
[2024-08-17] MEDS: ibuprofen 800 mg tablet PO (21:56)
[2024-08-18 04:00] VITALS: BP 137/92; PULSE 61; RESP 18; TEMP 36.7
[2024-08-18 04:00] LABS: Mean Corpuscular HGB Conc 31.3 g/dL (30-55); Mean Corpuscular Hemoglobin 26.9 pg (27-33); Mean Corpuscular Volume 85.8 fl (85-98); Mean Platelet Volume 11.7 fL (7.4-10.4); Platelet Count 167 10^3/cmm (157-399); Red Blood Count 2.68 10^6/uL (3.85-5.65); Red Cell Distribution Width 15.2 % (12.1-15.1); White Blood Count 10.54 10^3/uL (3.29-11.43)
--- NOTE | 2024-08-18 07:59 | P.PN_ITS ---
Subjective 2 Subjective: The patient is doing well overall today. She is ambulating. She had some mild weakness with starting to ambulate, however this improved with time. The patient's pain is currently well-controlled by meds but she does have some low back pain from epidural. The patient's bleeding seems to be slowing down well. Her blood pressures have been in the 130s to 150s systolic. She denies any other symptoms related to these. She is tolerating food by mouth, voiding and passing gas. Vitals/I&O/Wt Last Vital Signs Temp 98.0 F 08/18/24 04:00 Pulse 61 08/18/24 04:00 Resp 18 08/18/24 04:00 BP 137/92 08/18/24 04:00 Pulse Ox 95 08/17/24 10:52 O2 Del Method Room Air 08/16/24 21:10 08/17/24 08/18/24 08/18/24 22:59 06:59 14:59 Intake Total 586.316 / 4342.850 Balance 586.316 / 3542.850 Weight last 48 hrs Weight 276 lb Physical Exam 2 Narrative: General: Alert and oriented x3 Cardiac: Regular rate and rhythm without murmurs Lungs: Clear to auscultation bilaterally without wheezes, crackles or rhonchi Abdomen: Soft, mild tenderness over uterus. The uterus is firm and 2 cm below the umbilicus. Extremities: Trace edema in the bilateral lower extremities Urinary Catheter Management: Mejía Latex: Cath Placed During This Visit: yes, but has since been removed by the nurse Reason for Continuing Indwelling Catheter: Decision to DC Catheter Urinary Catheter Date of Insertion: 08/17/24 Urinary Catheter Time of Insertion: 10:55 Date Urinary Catheter Removed: 08/17/24 Time Urinary Catheter Discontinued: 14:00 Data 08/18/24 03:50 08/16/24 21:00 A&P Assessment and plan (1) Spontaneous vaginal delivery: The patient is recovering well after delivery. She does have some complications that we will watch for including her blood pressures that are in the 130s to 150s. She is currently asymptomatic with these. We discussed that if they are getting into the 150s or above that we would need to start medications, but that for now I would like to wait in order to avoid risk for lightheadedness from her blood pressures dropping too low as well. The patient's bleeding is slowing down well. She is anemic with a hemoglobin that has decreased from 9.0 down to 7.2. At this point I feel that she is stable to proceed without a blood transfusion, but if she were to become less stable then either blood transfusion or iron transfusion would be something to consider. The patient will continue with her iron supplementation as well as multivitamin and micronutrient supplementation. We discussed routine discharge instructions. We will see how she does throughout the day today. There would be a possibility for discharge later today, however I am not opposed to waiting until tomorrow if she is not showing signs of good stability. We will recheck this afternoon and see how she is doing at that time. (2) Chronic hypertension: (3) Anemia: PDMP PDMP Reviewed: Not Reviewed Attestations 2 Medical Necessity Statement*: The patient will be here for greater than 2 midnights due to intrapartum and management of labor and delivery. Coding Level of Care Code Acute Code for Chg Fwd Diagnoses Spontaneous vaginal delivery O80 Chronic hypertension I10 Anemia D64.9
[2024-08-18] MEDS: ibuprofen 800 mg tablet PO ×3 (09:42→20:40)
[2024-08-18] MEDS: docusate sodium 100 mg Capsule PO ×2 (09:42→20:40)
[2024-08-18] MEDS: PRENATAL VIT NO.130/IRON/FOLIC 1 EACH TABLET PO (09:43)
[2024-08-18] MEDS: cyanocobalamin 1,000 mcg Tablet 500 MCG PO (09:43)
[2024-08-18] MEDS: multivitamin therapeutic Tablet 1 TAB PO (09:43)
[2024-08-18] MEDS: ferrous sulfate EC 325 mg Tablet PO ×2 (09:43→20:40)
[2024-08-18] MEDS: zinc gluconate 50 mg Tablet PO (09:44)
[2024-08-18] MEDS: cholecalciferol (vitamin D3) 1,000 unit Tablet 4000 UNIT PO (09:44)
[2024-08-18 09:45] VITALS: BP 160/95; PULSE 92; RESP 16; TEMP 36.6
[2024-08-18 10:15] VITALS: BP 140/88; PULSE 79
[2024-08-18 16:15] VITALS: BP 148/77; PULSE 70; RESP 16; TEMP 36.4; O2SAT 98
[2024-08-18 21:56] VITALS: BP 151/70; PULSE 88; RESP 16; TEMP 36.4; O2SAT 97
[2024-08-19 01:01] VITALS: BP 125/78
[2024-08-19] MEDS: HYDROcodone-acetaminophen 5-325 mg Tablet PO (02:14)
[2024-08-19 04:22] VITALS: BP 137/89; PULSE 85; RESP 15; TEMP 36.8; O2SAT 99
--- NOTE | 2024-08-19 08:15 | P.DS_ITS ---
Discharge Providers Date of Admission: 08/16/24 19:58 Date of Discharge: August 19, 2024 Attending Provider at Admission: Dimas Zuñiga MD Attending Provider at Discharge: Dimas Zuñiga MD Primary Care Provider: Dimas Zuñiga MD Diagnoses at Discharge Discharge Diagnosis (1) Spontaneous vaginal delivery: Status: Acute (2) Chronic hypertension: Status: Acute (3) Anemia: Status: Acute Other Information Additional DC diagnoses/information: 1. Intrauterine status post spontaneous vaginal delivery at 39.1 weeks gestation 2. History of gastric bypass 3. Obesity 4. Chronic hypertension 5. History of trichomonas 6. UTI in first trimester 7. Multiple micronutrient deficiencies including vitamin K, vitamin A, vitamin D, zinc, iron 8. Anemia 9. Delivery of healthy female weighing 7 pounds 0 ounces with Apgars of 8 and 9 Reason for Visit Reason for Visit: IOL Brief History: Jose Joya is a 29 year old G1 now P1 status post spontaneous vaginal delivery @ 39.1 wks by LMP c/w 7 wk US. Preg c/b h/o hypothyroidism, h/o gastric bypass, obesity, chronic HTN, h/o trichomonas, UTI in first TM, multiple micronutrient deficiencies including vitamin K, vitamin A, vitamin D, zinc, iron deficiencies, anemia, hypokalemia. Hospital Course Hospital Course The patient presented to labor and delivery for a scheduled induction of labor secondary to chronic hypertension that is currently diet-controlled. The patient has been having twice weekly NSTs and ultrasounds that have not shown any concerning findings. Her blood pressures have been in the 130s to 140s systolic. She denied any symptoms from this upon admission. The patient was 1.5 cm dilated upon admission on the evening of 08/16/2024 and 80% effaced. She was having contractions every 3 minutes and they were palpable, we decided to use IV Pitocin instead of Cytotec for induction of labor. The patient did not make significant change overnight, however by approximately 8:30 AM she had changed to 4 cm dilation. The patient continued to make change and had increased pain her blood pressures increased to the severe range and she was given 1 dose of labetalol. She received a laboring epidural which provided adequate anesthesia. SROM took place at 10:54 AM on 08/17/2024. A large amount of clear fluid was noted. The patient continued to make steady change. She was complete by 1357 on 08/17/2024. The patient delivered at 1431 on 08/17/2024. The delivery was uncomplicated except for a second-degree tear in the left lower vaginal wall. This was repaired using 3-0 Vicryl in a running fashion. The patient tolerated this well. , the patient has done well. Her hemoglobin did drop down to 7.2 from 9.0. Clinically she is stable so no transfusion will be given at this time. The patient was given precautions regarding orthostatic hypotension. Her bleeding has decreased well. The patient's blood pressures have been borderline elevated in the 130s to occasional 150s systolic. She has felt well with them in general. They tend to be higher when she was in more pain. We will have her continue to monitor her blood pressure at home and she has labetalol at home if needed. We have discussed when to start it. The patient is to keep her overall activity levels low especially for the next week to allow her to improve. The patient is to continue with her multivitamins to help increase her levels that were low. Routine precautions were discussed. All questions were answered. The patient and her are in agreement with the current plan of care. Physical Exam Narrative: General: Alert and oriented x3 Cardiac: Regular rate and rhythm without murmurs Lungs: Clear to auscultation bilaterally without wheezes, crackles or rhonchi Abdomen: Soft, mild tenderness over uterus. The uterus is firm and 2 cm below the umbilicus. Extremities: +1 pitting edema in the bilateral lower extremities Urinary Catheter Management: Mejía Latex: Cath Placed During This Visit: yes, but has since been removed by the nurse Reason for Continuing Indwelling Catheter: Decision to DC Catheter Urinary Catheter Date of Insertion: 08/17/24 Urinary Catheter Time of Insertion: 10:55 Date Urinary Catheter Removed: 08/17/24 Time Urinary Catheter Discontinued: 14:00 Discharge Data Studies Completed and Pending Laboratory Results WBC 10.54 10^3/uL (3.29-11.43) 08/18/24 03:50 RBC 2.68 10^6/uL (3.85-5.65) L 08/18/24 03:50 Hgb 7.20 g/dL (11.27-16.99) L 08/18/24 03:50 Hct 23.0 % (36-47) L 08/18/24 03:50 MCV 85.8 fl (85-98) 08/18/24 03:50 MCH 26.9 pg (27-33) L 08/18/24 03:50 MCHC 31.3 g/dL (30-55) 08/18/24 03:50 RDW 15.2 % (12.1-15.1) H 08/18/24 03:50 Plt Count 167 10^3/cmm (157-399) 08/18/24 03:50 MPV 11.7 fL (7.4-10.4) H 08/18/24 03:50 Neut % (Auto) 70.2 % 08/16/24 20:15 Lymph % (Auto) 20.8 % 08/16/24 20:15 Cochran % (Auto) 8.5 % 08/16/24 20:15 Eos % (Auto) 0.1 % 08/16/24 20:15 Baso % (Auto) 0.1 % 08/16/24 20:15 Neut # (Auto) 6.56 10^3/uL (1.8-7.7) 08/16/24 20:15 Lymph # (Auto) 2.0 10^3/uL (0.8-4.8) 08/16/24 20:15 Cochran # (Auto) 0.8 10^3/uL (0.2-0.9) 08/16/24 20:15 Eos # (Auto) 0.0 10^3/uL (0.0-0.8) 08/16/24 20:15 Baso # (Auto) 0.0 10^3/uL (0.0-0.1) 08/16/24 20:15 Nucleated RBC % (auto) 0 % 08/16/24 20:15 Nucleated RBCs # 0.0 /100WBC 08/16/24 20:15 PT 13.30 SECONDS (12.1-14.9) 08/17/24 01:00 INR 0.94 (0.8-1.2) 08/17/24 01:00 APTT 29.6 SECONDS (23.9-36.7) 08/17/24 01:00 Sodium 138 mmol/L (136-145) 08/16/24 21:00 Sodium Cancelled 08/16/24 21:00 Potassium 3.6 mmol/L (3.5-5.1) 08/16/24 21:00 Potassium Cancelled 08/16/24 21:00 Chloride 108 mmol/L (98-107) H 08/16/24 21:00 Chloride Cancelled 08/16/24 21:00 Carbon Dioxide 17 mmol/L (22-29) L 08/16/24 21:00 Carbon Dioxide Cancelled 08/16/24 21:00 Anion Gap 16.6 (5-19) 08/16/24 21:00 Anion Gap Cancelled 08/16/24 21:00 BUN 5 mg/dL (6-20) L 08/16/24 21:00 BUN Cancelled 08/16/24 21:00 Creatinine 0.5 mg/dL (0.5-0.9) 08/16/24 21:00 Creatinine Cancelled 08/16/24 21:00 GFR Calculation 148.0 mL/min (90-130) H 08/16/24 21:00 GFR Calculation Cancelled 08/16/24 21:00 Glucose 77 mg/dL (65-115) 08/16/24 21:00 Glucose Cancelled 08/16/24 21:00 Calculated Osmolality 282 mOsm/kg (285-295) L 08/16/24 21:00 Calculated Osmolality Cancelled 08/16/24 21:00 Uric Acid 4.0 mg/dL (2.4-5.7) 08/16/24 21:00 Calcium 7.8 mg/dL (8.5-10.5) L 08/16/24 21:00 Calcium Cancelled 08/16/24 21:00 Total Bilirubin 0.3 mg/dL (0.15-1.2) 08/16/24 21:00 AST 21 U/L (0-32) 08/16/24 21:00 ALT 17 U/L (0-33) 08/16/24 21:00 Alkaline Phosphatase 151 U/L (35-105) H 08/16/24 21:00 Total Protein 5.9 g/dL (6.6-8.7) L 08/16/24 21:00 Albumin 3.1 g/dL (3.5-5.2) L 08/16/24 21:00 Globulin 2.8 g/dL (1.3-4.6) 08/16/24 21:00 U Random Total Protein 4 mg/dL 08/16/24 21:45 Urine Creatinine 29 mg/dL (28-217) 08/16/24 21:45 Protein/Creatinin Ratio 0.14 mg/mg CR 08/16/24 21:45 Blood Type O Positive 08/16/24 20:15 Rho(D) Type Rh positive 08/16/24 20:15 Antibody Screen Negative 08/16/24 20:15 Vitals Last Vital Signs Temp 98.2 F 08/19/24 04:22 Pulse 85 08/19/24 04:22 Resp 15 08/19/24 04:22 BP 137/89 08/19/24 04:22 Pulse Ox 99 08/19/24 04:22 O2 Del Method Room Air 08/19/24 04:22 Discharge Plan Discharge Patient Disposition: Home Condition: Good Prescriptions: New hydrocodone-acetaminophen 5-325 mg Tablet 1 tab PO Q6H PRN (Reason: Moderate To Severe Pain) Qty: 15 0RF ibuprofen 800 mg Tablet 800 mg PO TID Qty: 60 0RF Continued epinephrine [EpiPen 2-Adriel] 0.3 mg/0.3 mL auto-injector 0.3 mg IM Q10M PRN (Reason: anaphylaxis) Qty: 2 0RF Rx Instructions: for 2 doses calcium carbonate [Antacid (calcium carbonate)] 200 mg calcium (500 mg) tablet,chewable 200 mg PO BID Celebrate B-12 Quick-Melt 1,000-200 mcg tablet,disintegrating 1 tab PO DAILY PNV no.154-iron fumarate-folic 27 mg iron- 1 mg tablet 1 tab PO DAILY doxylamine succinate 25 mg tablet See Rx Instructions .Route .COMPLEX PRN (Reason: allergy symptoms) Qty: 30 6RF Rx Instructions: Take 1 tab by mouth each evening and 1/2 tab in the am as needed for nausea PRN; pyridoxine (vitamin B6) 100 mg tablet 100 mg PO BID PRN (Reason: Nausea) Qty: 60 3RF vitamin A palmitate 4,500 mcg (15,000 unit) tablet 15,000 unit PO DAILY Qty: 30 3RF ferrous sulfate 325 mg (65 mg iron) tablet 325 mg PO TID Qty: 90 3RF cholecalciferol (vitamin D3) 50 mcg (2,000 unit) capsule 100 mcg PO BID Qty: 60 6RF labetalol 100 mg tablet 50 mg PO BID PRN (Reason: hypertension) Qty: 30 0RF Rx Instructions: Take 1/2 tab PO BID if SBP>150 or DBP>110. cyanocobalamin (vitamin B-12) [Vitamin B-12] 500 mcg tablet 500 mcg PO DAILY Qty: 30 6RF vitamin E (dl, acetate) 180 mg (400 unit) capsule 180 mg PO DAILY Qty: 30 6RF zinc gluconate 50 mg tablet 50 mg PO BID Qty: 60 6RF phytonadione (vitamin K1) 100 mcg tablet 100 mcg PO DAILY Qty: 30 2RF potassium chloride [Klor-Con M20] 20 mEq tablet,ER particles/crystals 20 meq PO BID Qty: 30 0RF multivitamin [Daily Multiple] Tablet 1 tab PO DAILY Discharge Orders: Discharge Order (Routine); Ordered 08/19/24 Ordered By: Dimas Zuñiga Referrals: Dimas Zuñiga MD [Primary Care Provider] - 08/20/24 11:00 am Discharge Diet: Regular Discharge Activity: Increase activity as tolerated Patient Instructions: Depression (DC), Opioid Safety (DC), Preeclampsia and Eclampsia After Delivery (GEN), Hemorrhage (DC), OB Discharge Report, OB Food/Drug Interaction Guide, Opioid Safety, OB [facility], OB Vaginal Deliveries, Abnormal Bleeding Activity Restrictions/Additional Instructions: Nothing per vagina for 6 weeks. Showers are recommended instead of baths for the first 6 weeks. Monitor your blood pressure twice a day for the next month and start labetalol 50 mg twice a day if your blood pressure is in the 150/100 range or above commonly. Discharge Attestations Time Spent in Discharge Care*: greater than 30 min Quality Metrics Clinical Quality Measures [ No reported AMI, CVA or VTE this stay] Coding Level of Care Code Acute Code for Chg Fwd Diagnoses Spontaneous vaginal delivery O80 Chronic hypertension I10 Anemia D64.9
[2024-08-19] MEDS: docusate sodium 100 mg Capsule PO (09:01)
[2024-08-19] MEDS: PRENATAL VIT NO.130/IRON/FOLIC 1 EACH TABLET PO (09:01)
[2024-08-19] MEDS: zinc gluconate 50 mg Tablet PO (09:01)
[2024-08-19] MEDS: ibuprofen 800 mg tablet PO (09:02)
[2024-08-19] MEDS: ferrous sulfate EC 325 mg Tablet PO (09:02)
[2024-08-19] MEDS: multivitamin therapeutic Tablet 1 TAB PO (09:03)
[2024-08-19] MEDS: cyanocobalamin 1,000 mcg Tablet 500 MCG PO (09:03)
[2024-08-19] MEDS: cholecalciferol (vitamin D3) 1,000 unit Tablet 4000 UNIT PO (09:04)
[2024-08-19 09:36] VITALS: BP 138/74; PULSE 73; RESP 16; TEMP 36.6; TEMP 36.7; O2SAT 98
--- NOTE | 2024-08-19 11:37 | ANE.PACU2 ---
Inpatient post-anesthesia follow up: Airway intact: Yes Vital signs: Temperature 98.0 F Pulse Rate 73 Respiratory Rate 16 Blood Pressure 138/74 Pulse Oximetry 98 Oxygen Delivery Me thod Room Air Oxygen Flow Rate Fraction of Inspir ed Oxygen Hydration adequate: Yes Nausea and vomiting: No Pain level: 1 Mental status: Baseline Epidural Start/End: Epidural Start Date: 08/17/24 Epidural Start Time: 09:35 Epidural End Date: 08/17/24 Epidural End Time: 16:18
[2024-08-19 11:45] VITALS: BP 138/74; PULSE 73; RESP 16; TEMP 36.6; O2SAT 98
== END 2024-08-19 12:39 | disposition home or self-care (01) | DRG 806 ==
LOC: OPOB 19:59 → OBGYN 19:59
PROVIDERS: Anesthesiology; Admitting Provider Family Medicine; Family Provider Family Medicine; PCP Family Medicine; Visit Provider Family Medicine
DX: O16.4 Unspecified maternal hypertension, complicating childbirth (principal); E51.9 Thiamine deficiency, unspecified; Z37.0 Single live birth; O99.284 Endocrine, nutritional and metabolic diseases complicating childbirth; E03.9 Hypothyroidism, unspecified; O99.214 Obesity complicating childbirth; O99.02 Anemia complicating childbirth; O69.81X0 Labor and delivery complicated by cord around neck, without compression, not applicable or unspecified; Z3A.39 39 weeks gestation of pregnancy; O70.1 Second degree perineal laceration during delivery; Z98.84 Bariatric surgery status; Z87.440 Personal history of urinary (tract) infections; D50.9 Iron deficiency anemia, unspecified; O75.89 Other specified complications of labor and delivery; E56.1 Deficiency of vitamin K; E50.9 Vitamin A deficiency, unspecified; E55.9 Vitamin D deficiency, unspecified; E60 Dietary zinc deficiency
CPT/HCPCS: 36415; 51702; 59025; 59409; 80053; 82570; 84156; 84550; 85025; 85027; 85610; 85730; 86850; 86900; J0595; J2590; J2795; J3490; J7040; J7120; J7121; J9999

== ENCOUNTER → 2024-09-02 10:49 | Outpatient (BNVA) | payer BC, MEDICAID, SELFPAY | PROVIDERS: Family Provider Family Medicine; PCP Family Medicine; Visit Provider Family Medicine | DX: Z51.81 Encounter for therapeutic drug level monitoring (principal) | CPT/HCPCS: 85025 ==

== ENCOUNTER → 2024-09-07 11:06 | Outpatient (BNVA) | payer BC, MEDICAID, SELFPAY | PROVIDERS: Family Provider Family Medicine; PCP Family Medicine; Visit Provider Family Medicine | DX: R30.0 Dysuria (principal) | CPT/HCPCS: 81000; 87077; 87086; 87184 ==

== ENCOUNTER → 2024-09-30 13:01 | Outpatient (BNVA) | payer SELFPAY | PROVIDERS: Family Provider Family Medicine; PCP Family Medicine; Visit Provider Family Medicine | DX: E55.9 Vitamin D deficiency, unspecified (principal); Z98.84 Bariatric surgery status; Z51.81 Encounter for therapeutic drug level monitoring; D64.9 Anemia, unspecified; E50.9 Vitamin A deficiency, unspecified; E56.1 Deficiency of vitamin K | CPT/HCPCS: 80053; 82306; 82728; 83540; 84590; 84597; 84630; 85025 ==

== ENCOUNTER 2025-01-04 16:30 | Oncology outpatient (recurring) (ONCR) | payer BC, MEDICAID, SELFPAY ==
[2024-12-24] MEDS: iron sucrose 200 MG in sodium chloride 0.9% (100 ml) 100 ML IV (11:38)
[2024-12-27] MEDS: iron sucrose 200 MG in sodium chloride 0.9% (100 ml) 100 ML IV (16:04)
[2024-12-27 16:38] VITALS: BP 130/84; PULSE 71; RESP 16; TEMP 36.3; O2SAT 98
[2024-12-31] MEDS: iron sucrose 200 MG in sodium chloride 0.9% (100 ml) 100 ML IV (11:33)
[2024-12-31 12:18] VITALS: BP 143/86; PULSE 74; RESP 16; O2SAT 98
[2025-01-04] MEDS: iron sucrose 200 MG in sodium chloride 0.9% (100 ml) 100 ML IV (16:46)
== END 2025-01-06 23:59 | disposition home or self-care (01) ==
PROVIDERS: PCP Family Medicine; Visit Provider Family Medicine
DX: D50.9 Iron deficiency anemia, unspecified (principal); Z79.899 Other long term (current) drug therapy; Z53.9 Procedure and treatment not carried out, unspecified reason
CPT/HCPCS: 96365; J1756

== ENCOUNTER 2025-01-26 15:45 | Oncology outpatient (recurring) (ONCR) | payer BC, MEDICAID, SELFPAY ==
[2025-01-26 16:24] LABS: Hematocrit 37.8 % (36-47); Hemoglobin 12.00 g/dL (11.27-16.99); Mean Corpuscular HGB Conc 31.7 g/dL (30-55); Mean Corpuscular Hemoglobin 28.2 pg (27-33); Mean Corpuscular Volume 88.9 fl (85-98); Nucleated Red Blood Cells % 0 %; Platelet Count 221 10^3/cmm (157-399); Red Blood Count 4.25 10^6/uL (3.85-5.65); White Blood Count 5.71 10^3/uL (3.29-11.43)
[2025-01-26 16:39] LABS: Iron 55 ug/dL (37-145)
[2025-01-26 17:07] LABS: Alanine Aminotransferase 47 U/L (0-33); Albumin Level 4.7 g/dL (3.5-5.2); Alkaline Phosphatase 126 U/L (35-105); Anion Gap 13.5 (5-19); Aspartate Amino Transferase 27 U/L (0-32); Blood Urea Nitrogen 15 mg/dL (6-20); Calcium 8.9 mg/dL (8.5-10.5); Carbon Dioxide 25 mmol/L (22-29); Chloride 107 mmol/L (98-107); Ferritin 33 ng/mL (15-150); Globulin 3.0 g/dL (1.3-4.6); Glucose 86 mg/dL (65-115); Iron 57 ug/dL (37-145); Osmolality Calculated 294 mOsm/kg (285-295); Potassium 3.5 mmol/L (3.5-5.1); Sodium 142 mmol/L (136-145); Thyroid Stimulating Hormone 1.24 uIU/mL (0.27-4.20); Total Iron Binding Capacity 363 mcg/dl; Total Protein 7.7 g/dL (6.6-8.7); Unsaturated Iron Binding 306 ug/dL (112-347); Vitamin B12 641 pg/mL (232-1245)
[2025-01-26 21:41] LABS: Free T4 Free Thyroxine 1.03 ng/dL (0.82-1.77)
[2025-02-01 08:10] LABS: Zinc Level, Serum or Plasma 53 mcg/dL (60-130)
== END 2025-02-06 23:59 | disposition home or self-care (01) ==
PROVIDERS: PCP Family Medicine; Visit Provider Family Medicine
DX: Z51.81 Encounter for therapeutic drug level monitoring (principal); Z98.84 Bariatric surgery status; D50.9 Iron deficiency anemia, unspecified
CPT/HCPCS: 36415; 80053; 82525; 82607; 82728; 83540; 83550; 84439; 84443; 84446; 84590; 84597; 84630; 85025; 87624

== ENCOUNTER 2025-05-26 07:35 | Oncology outpatient (recurring) (ONCR) | payer BC, MEDICAID, SELFPAY ==
[2025-05-26 08:05] LABS: Hematocrit 37.2 % (36-47); Hemoglobin 12.00 g/dL (11.27-16.99); Mean Corpuscular HGB Conc 32.3 g/dL (30-55); Mean Corpuscular Hemoglobin 28.8 pg (27-33); Mean Corpuscular Volume 89.4 fl (85-98); Nucleated Red Blood Cells % 0 %; Platelet Count 192 10^3/cmm (157-399); Red Blood Count 4.16 10^6/uL (3.85-5.65); White Blood Count 5.02 10^3/uL (3.29-11.43)
[2025-05-26 08:50] LABS: Alanine Aminotransferase 29 U/L (0-33); Albumin Level 4.4 g/dL (3.5-5.2); Alkaline Phosphatase 143 U/L (35-105); Anion Gap 17.0 (5-19); Aspartate Amino Transferase 25 U/L (0-32); Blood Urea Nitrogen 8 mg/dL (6-20); Calcium 8.4 mg/dL (8.5-10.5); Carbon Dioxide 21 mmol/L (22-29); Chloride 105 mmol/L (98-107); Globulin 3.0 g/dL (1.3-4.6); Glucose 63 mg/dL (65-115); Iron 82 ug/dL (37-145); Osmolality Calculated 284 mOsm/kg (285-295); Potassium 4.0 mmol/L (3.5-5.1); Sodium 139 mmol/L (136-145); Thyroid Stimulating Hormone 1.92 uIU/mL (0.27-4.20); Total Iron Binding Capacity 363 mcg/dl; Total Protein 7.4 g/dL (6.6-8.7); Unsaturated Iron Binding 281 ug/dL (112-347); Vitamin B12 461 pg/mL (232-1245)
[2025-05-26 09:13] LABS: Free T4 Free Thyroxine 1.18 ng/dL (0.82-1.77)
[2025-05-30 09:40] LABS: Vitamin B1 (Thiamine),Blood 98 nmol/L (78-185)
[2025-06-02 23:19] LABS: Zinc Level, Serum or Plasma 57 mcg/dL (60-130)
== END 2025-06-08 23:59 | disposition home or self-care (01) ==
LOC: ONCMED 07:35
PROVIDERS: PCP Family Medicine; Visit Provider Family Medicine
DX: E50.9 Vitamin A deficiency, unspecified (principal); E56.1 Deficiency of vitamin K; D64.9 Anemia, unspecified; R53.81 Other malaise; R53.83 Other fatigue; Z98.84 Bariatric surgery status
CPT/HCPCS: 36415; 80053; 82306; 82525; 82607; 83540; 83550; 84425; 84439; 84443; 84446; 84590; 84597; 84630; 85025